=== PATIENT | female | born 1970 | race Caucasian/White ===

== ENCOUNTER 2018-03-20 21:04 | Emergency (ER) | payer BC ==
--- NOTE | 2018-03-20 21:56 | ED ---
Psych HPI - General Chief Complaint: Psychiatric Symptoms Stated Complaint: Mental health Time Seen by Provider: 03/20/18 21:55 Source: patient, family Mode of arrival: ambulatory - History of Present Illness Initial Comments: Lyn is a 47-year-old female with a history of depression and anxiety who presents the ED today in police custody for psychiatric evaluation. Patient is accompanied by her parents who are here for emotional support. The patient reports that she recently learned that her significant other of 5 years has been unfaithful to her, she reports that today her boyfriend's ex-girlfriend contacted her and gave her some very unpleasant information which upset the patient. Patient reports she then text that her boyfriend and told him that she was going to harm herself, patient admits that she was doing this for attention seeking. She states she felt she was testing her boyfriend to see if he even care. She states her boyfriend in even contact her after she said has not information and so he contacted the police who subsequently brought her to the ER. Patient denies any suicidal thoughts or ideation. She denies any self- harm activities. She has no intention of harming herself. Patient does admit to being somewhat upset over the recent breakup however has good social support and is not suicidal, homicidal, delusional. Patient has a follow-up appointment with her counselor tomorrow at 3:30. She's been compliant with all medications. She hasn't been hospitalized in a long period of time. Patient admits to sending the text message that indicated she plan to harm herself, she recognizes that this was a poor decision. She recognizes the utility of being brought to the emergency department and is apologetic for "wasting" our time and place and time of police. - Related Data Home Medications Medication Instructions Recorded Confirmed ALPRAZolam [Xanax] 0.5 mg PO BID PRN 03/20/18 03/20/18 Gabapentin 400 - 800 mg PO TID PRN 03/20/18 03/20/18 Levothyroxine Sodium [Synthroid] 25 mcg PO DAILY 03/20/18 03/20/18 Venlafaxine HCl ER [Effexor Xr] 150 mg PO BID 03/20/18 03/20/18 Allergies Allergy/AdvReac Type Severity Reaction Status Date / Time No Known Allergies Allergy Verified 03/20/18 22:43 Review of Systems ROS Statement: Those systems with pertinent positive or pertinent negative responses have been documented in the HPI. ROS Other: All systems not noted in ROS Statement are negative. Past Medical History Past Medical History: No Reported History History of Any Multi-Drug Resistant Organisms: None Reported Past Surgical History: Appendectomy, Cholecystectomy, Hysterectomy Past Psychological History: Bipolar Smoking Status: Never smoker Past Alcohol Use History: None Reported Past Drug Use History: None Reported General Exam - General Exam Comments Initial Comments: Physical Exam GENERAL: Patient is well-developed and well-nourished. Patient is nontoxic and well- hydrated and is in no distress. HENT: Normocephalic, Atraumatic. EYES: PERRL, EOMI PULMONARY: Unlabored respirations. No audible rales rhonchi or wheezing was noted. CARDIOVASCULAR: There is a regular rate and rhythm without any murmurs gallops or rubs. ABDOMEN: Soft and nontender with normal bowel sounds. SKIN: Skin is clear with no lesions or rashes and otherwise unremarkable. : Deferred NEUROLOGIC: Patient is alert and oriented x3. Moving all extremities spontaneously MUSCULOSKELETAL: Normal extremities with adequate strength and full range of motion. No lower extremity swelling or edema. No calf tenderness. PSYCHIATRIC: Normal psychiatric evaluation. Limitations: no limitations Limitations: no limitations Course Vital Signs 03/20/18 21:12 Temperature 98.3 F Pulse Rate 101 H Respiratory 18 Rate Blood Pressure 139/89 O2 Sat by Pulse 95 Oximetry Medical Decision Making - Medical Decision Making The patient was seen and evaluated, history is obtained from the patient. Patient's parents at bedside also provide further history. Patient does have a history of depression and anxiety, she does admit to making a suicidal statement however recognizes that this statement was attention seeking and she was reportedly testing her boyfriend to see if he cared. Patient denies any suicidal thoughts or plan. Family at bedside also states they do not feel that she suicidal or harm to herself or others. Patient does have established outpatient counseling and does have a appointment for tomorrow at 3:30. Patient agrees to follow up with her counselor, patient contracts to safety. Family reports that they will be with the patient throughout the night until she leaves for work in the morning. At this time either the patient, myself nor the family feel that she requires further psychiatric evaluation or intervention. At this time the patient and her family are comfortable with the plan for discharge home. Return parameters were discussed. Patient was encouraged to call 911 if she has any thoughts of self-harm or injury. Patient was discharged home in stable condition. - Lab Data Lab Results 03/20/18 Range/Units 22:25 Urine Opiates Screen Not Detected (NotDetected) Ur Oxycodone Screen Not Detected (NotDetected) Urine Methadone Screen Not Detected (NotDetected) Ur Propoxyphene Screen Not Detected (NotDetected) Ur Barbiturates Screen Not Detected (NotDetected) U Tricyclic Antidepress Not Detected (NotDetected) Ur Phencyclidine Scrn Not Detected (NotDetected) Ur Amphetamines Screen Not Detected (NotDetected) U Methamphetamines Scrn Not Detected (NotDetected) U Benzodiazepines Scrn Detected H (NotDetected) Urine Cocaine Screen Not Detected (NotDetected) U Marijuana (THC) Screen Detected H (NotDetected) Disposition Clinical Impression: Grief Disposition: HOME SELF-CARE Condition: Good Instructions: Depression (ED) Is patient prescribed a controlled substance at d/c from ED?: No Referrals: None,Stated [REFERRING] - 1-2 days
[2018-03-20 23:27] LABS: Amphetamine Screen,Urine Not Detected (NotDetected); Barbiturate Screen,Urine Not Detected (NotDetected); Benzodiazepines Screen,Urine Detected (NotDetected); Cocaine Screen,Urine Not Detected (NotDetected); Methadone Screen, Urine Not Detected (NotDetected); Opiate Screen,Urine Not Detected (NotDetected); Oxycodone Screen, Urine Not Detected (NotDetected); Phencyclidine Screen,Urine Not Detected (NotDetected); Tricyclic Antidepressant,Urine Not Detected (NotDetected); Urn Cannabinoid Scrn Detected (NotDetected)
[2018-03-20 23:47] VITALS: BP 132/93; PULSE 90; RESP 17; TEMP 98.6
== END 2018-03-20 23:56 | disposition home or self-care (01) ==
LOC: EC 21:04
DX: F43.21 Adjustment disorder with depressed mood (principal); F41.9 Anxiety disorder, unspecified; Z79.899 Other long term (current) drug therapy
CPT/HCPCS: 80306; 82075; 99283

== ENCOUNTER → 2020-05-29 | Outpatient (CLI) | payer BC ==
[2020-05-29 14:55] VITALS: BP 126/80; PULSE 101; TEMP 98.1; BMI 36.0
--- NOTE | 2020-05-29 15:30 | P.HPBAR ---
Bariatric H&P - History & Physicial H&P Date: 05/29/20 History & Physicial: Visit/CC: initial clinic visit Patient initial contact: Initial weight: Initial weight in pounds: Height: 5 ft 4 in Initial BMI: Last weight: Current weight: 95.254 kg Current weight in pounds: 210.00 Current BMI: 36.0 [place] body weight (based on NIH guidelines): 54.431 kg Excess body weight loss: The patient is a 49 year-old F who presents for Bariatric Assessment. 49-year-old female presents to discuss weight loss surgery. Patient has had 3 family members go through a sleeve gastrectomy in the past. Patient with comorbidities including hypercholesterolemia, sleep apnea, chronic back pain, reflux. No history of DVT or dysphagia. No tobacco use in the past. BMI 36. Surgical history includes appendectomy: Hysterectomy all done laparoscopically. Review of Systems The patient denies any acute changes in vision or hearing, no dysphagia or odynophagia, no chest pain or shortness of breath, no dysuria or hematuria, no headache, no runny nose, no rectal bleeding or melena, no unexplained weight loss Past Medical History Past Medical History: No Reported History History of Any Multi-Drug Resistant Organisms: None Reported Past Surgical History: Appendectomy, Cholecystectomy, Hysterectomy Past Anesthesia/Blood Transfusion Reactions: No Reported Reaction Past Psychological History: Bipolar Smoking Status: Never smoker Past Alcohol Use History: None Reported Past Drug Use History: None Reported Surgical - Exam Vital Signs Temp Pulse BP 98.1 F 101 H 126/80 05/29/20 14:45 05/29/20 14:45 05/29/20 14:45 Physical exam: General: Well-developed, well-nourished HEENT: Normocephalic, sclerae nonicteric Abdomen: Nontender, nondistended Extremities: No edema Neuro: Alert and oriented Bariatric Assessment & Plan (1) Obesity (BMI 30-39.9) Narrative/Plan: 49-year-old female with obesity and associated comorbidities. Patient int erested in sleeve gastrectomy. Patient does require supervised weight loss documentation. Will discuss with her primary care physician in more detail. Will require upper endoscopy once that documentation is obtained. The risks of bleeding, infection, stenosis, stricture, leak, abscess, fistula formation, peritonitis, poor weight loss, reflux, vomiting, conversion to an open procedure, aborting sleeve gastrectomy, GA, PE, DVT, and were discussed. The patient understands and wishes to proceed. Status: Acute Bariatric Checklist Checklist: Plan: Checklist: EGD: 1. Hiatal hernia: 2. H. Pylori: HgbA1c: Vitamin D: Smoking: Never smoker Primary care physician referral: Psychiatry clearance: Cardiology clearance: Sleep study: Diet journal: VTE risk score: VTE risk level: Rehab needs at discharge:
[2020-05-29 15:58] LABS: HCT 38.4 % (34.0-46.0); HGB 12.3 gm/dL (11.4-16.0); Hypochromasia Slight; MCH 27.8 pg (25.0-35.0); MCV 86.9 fL (80.0-100.0); Mean Platelet Volume 7.4; Platelet Count 381 k/uL (150-450); RBC 4.42 m/uL (3.80-5.40); RDW 13.3 % (11.5-15.5); WBC 9.8 k/uL (3.8-10.6)
[2020-05-30 00:32] LABS: Hemoglobin A1C 5.6 % (4.0-6.0)
[2020-05-30 02:38] LABS: ALT 32 U/L (8-44); AST 20 U/L (13-35); African American GFR (CKD) 100.3 (60.0-200.0); Albumin/Globulin Ratio 2.15 (1.60-3.17); Alkaline Phosphatase 128 U/L (41-126); Calcium 8.4 mg/dL (8.7-10.3); Carbon Dioxide 22.1 mmol/L (21.6-31.8); Chloride 107 mmol/L (96-109); Glucose 93 mg/dL (70-110); Iron 34 ug/dL (50-170); Non-African American GFR(CKD) 86.6 (60.0-200.0); Sodium 141 mmol/L (135-145); Total Bilirubin 0.3 mg/dL (0.3-1.2); Total Protein 6.3 g/dL (6.2-8.2)
[2020-05-30 04:21] LABS: Folate, Serum >24.0 ng/mL
== END | disposition home or self-care (01) ==
LOC: BARWHC3 14:13
PROVIDERS: ATTEND Surgery
DX: E66.01 Morbid (severe) obesity due to excess calories (principal); Z68.30 Body mass index [BMI] 30.0-30.9, adult; K90.89 Other intestinal malabsorption; E55.9 Vitamin D deficiency, unspecified
CPT/HCPCS: 36415; 80053; 82306; 82607; 82746; 83036; 83540; 84425; 85027; 99211

== ENCOUNTER 2020-07-01 09:57 | Day surgery (SDC) | payer BC ==
[2020-06-27 11:11] VITALS: BMI 35.0
[~2020-07-01 09:57] MED LIST: LACTATED RINGERS 1,000 ML IV SCH; LIDOCAINE 1% (10MG/ML) FOR IV START INTRADERMA PRN
[2020-07-01 10:22] VITALS: TEMP 98.6
[2020-07-01] MEDS ORDERED: PROPOFOL 10 MG/ML 20 ML VIAL IV ONE (10:57)
[2020-07-01] MEDS ORDERED: LIDOCAINE 1% INJ 10MG/ML (20 ML MDV) ONE (10:57)
--- NOTE | 2020-07-01 11:00 | P.GSHP ---
History of Present Illness H&P Date: 07/01/20 Chief Complaint: GERD, screening Patient here today for upper and lower endoscopy. Mild reflux symptoms. Patient is being evaluated for sleep gastrectomy. No bowel complaints. Screening colon. Past Medical History Past Medical History: GERD/Reflux, Pneumonia Additional Past Medical History / Comment(s): states "double pneumonia" last month -hospitalized at [facility] diarrhea. History of Any Multi-Drug Resistant Organisms: None Reported Past Surgical History: Appendectomy, Cholecystectomy, Hysterectomy Past Anesthesia/Blood Transfusion Reactions: No Reported Reaction, Motion Sickness Past Psychological History: Anxiety, Depression Additional Psychological History / Comment(s): FATHER FROM COVID Smoking Status: Never smoker Past Alcohol Use History: None Reported Past Drug Use History: None Reported - Past Family History Mother Family Medical History: No Reported History Medications and Allergies Home Medications Medication Instructions Recorded Confirmed Type Calcium (Unknown Dose) 1 tab PO DAILY 06/27/20 History Ibuprofen [Motrin Ib] 400 mg PO DIRECTED PRN 06/27/20 06/27/20 History Multivit with Calcium,Iron,Min 1 each PO DAILY 06/27/20 06/27/20 History [Women's Multivitamin] Omeprazole [PriLOSEC] 40 mg PO DAILY PRN 06/27/20 06/27/20 History Restoril (Unknown Dose) 1 tab PO HS PRN 06/27/20 History Venlafaxine HCl ER [Effexor Xr] 150 mg PO DAILY 06/27/20 06/27/20 History Vitamin D (Unknown Dose) 1 tab PO DAILY 06/27/20 History clonazePAM [KlonoPIN] 1 mg PO HS 06/27/20 06/27/20 History lamoTRIgine [LaMICtal Xr] 50 mg PO DAILY 06/27/20 06/27/20 History Allergies Allergy/AdvReac Type Severity Reaction Status Date / Time No Known Allergies Allergy Verified 06/27/20 10:45 Surgical - Exam Vital Signs Temp Pulse Resp BP Pulse Ox 98.6 F 78 18 134/95 97 07/01/20 10:20 07/01/20 10:20 07/01/20 10:20 07/01/20 10:20 07/01/20 10:20 Physical exam: General: Well-developed, well-nourished HEENT: Normocephalic, sclerae nonicteric Abdomen: Nontender, nondistended Extremities: No edema Neuro: Alert and oriented Assessment and Plan (1) GERD (gastroesophageal reflux disease) Narrative/Plan: Will proceed with upper and lower endoscopy Current Visit: Yes Status: Acute Code(s): K21.9 - GASTRO-ESOPHAGEAL REFLUX DISEASE WITHOUT ESOPHAGITIS SNOMED Code(s): 314844221
--- NOTE | 2020-07-01 11:16 | P.PCN ---
Date of Procedure: 07/01/20 Procedure(s) Performed: PREOPERATIVE DIAGNOSIS: GERD, screening POSTOPERATIVE DIAGNOSIS: Gastritis, hiatal hernia, distal esophagitis PROCEDURE: 1. EGD with biopsy 2. Colonoscopy ANESTHESIA: MAC SURGEON: Jelani Agee M.D. SPECIMENS: Antrum, Distal esophagus ENDOSCOPIC PROCEDURE: The patient was on the endoscopy table in the left decubitus position. The Olympus gastroscope was inserted into the oropharynx and passed under direct visualization to the region of the third portion of the duodenum. From that point the scope was slowly withdrawn inspecting all surfaces carefully. There were no neoplastic inflammatory or polypoid lesions throughout the duodenum. The pylorus was widely patent. The stomach was carefully inspected. There was gastritis present. A biopsy of the antrum took place to rule out H. pylori. Retroflexion revealed a small moderate sized hiatal hernia. The GE junction was present 3 cm above the diaphragmatic hiatus. The distal esophagus revealed multiple linear erosions present. These were non-circumferential. These measured 2 cm in length. Biopsies took place of the distal esophagitis. The mid and proximal esophagus appeared normal. There were no Hooper's changes grossly. The patient was kept on the endoscopy table in the left decubitus position. The Olympus colonoscope was inserted into the anus and passed under direct visualization to the base of the cecum. The appendiceal orifice was visualized. From that point the scope was slowly withdrawn inspecting all surfaces carefully. There were no neoplastic inflammatory or polypoid lesions throughout the cecum, ascending, transverse, descending, sigmoid and rectum. There was no visible diverticulosis noted. Digital rectal examination was normal. The patient was taken to the recovery room in stable condition per anesthesia guidelines. RECOMMENDATIONS: Resume diet. Follow colonoscopy 10 years. Await biopsy results. Begin antiacid therapy.
[2020-07-01 11:21] VITALS: RESP 16
[2020-07-01 11:33] VITALS: BP 137/96; PULSE 102
== END 2020-07-01 12:11 | disposition home or self-care (01) ==
LOC: ORWHC2ENDO 09:57
PROVIDERS: ATTEND Surgery
DX: K29.60 Other gastritis without bleeding (principal); K44.9 Diaphragmatic hernia without obstruction or gangrene; K21.00 Gastro-esophageal reflux disease with esophagitis, without bleeding; Z12.11 Encounter for screening for malignant neoplasm of colon; F41.9 Anxiety disorder, unspecified; F32.9 Major depressive disorder, single episode, unspecified; E66.9 Obesity, unspecified; Z68.35 Body mass index [BMI] 35.0-35.9, adult; Z79.899 Other long term (current) drug therapy; Z87.01 Personal history of pneumonia (recurrent); Z90.49 Acquired absence of other specified parts of digestive tract; Z90.710 Acquired absence of both cervix and uterus
CPT/HCPCS: 88305; 43239; J2001; J2704; G0121

== ENCOUNTER → 2020-12-29 | Outpatient (CLI) | payer BC ==
[2020-12-29 13:40] VITALS: BMI 33.0
== END | disposition home or self-care (01) ==
LOC: BARWHC3 08:49
PROVIDERS: ATTEND Surgery
DX: E66.01 Morbid (severe) obesity due to excess calories (principal); Z71.3 Dietary counseling and surveillance
CPT/HCPCS: 97804

== ENCOUNTER → 2021-01-13 | Outpatient (CLI) | payer BC ==
[2021-01-13 10:13] VITALS: BP 164/98; PULSE 118; TEMP 98; BMI 36.8
--- NOTE | 2021-01-13 10:52 | P.BASOAP ---
Subjective Progress Note Date: 01/13/21 Principal diagnosis: Morbid obesity Patient returns for reevaluation. Patient remains interested in sleeve gastrectomy. Patient underwent upper endoscopy in June showing 3 cm hiatal hernia and mild gastritis. No H. pylori. Patient nonsmoker. No other changes to her history and physical from previous. Objective - Vital Signs Vital signs: Vital Signs Temp 98 F 01/13/21 10:11 Pulse 118 H 01/13/21 10:11 Resp BP 164/98 01/13/21 10:11 Pulse Ox Intake & Output 01/12/21 01/13/21 01/13/21 18:59 06:59 18:59 Weight 97.522 kg - Exam Abdomen: Soft, nontender, nondistended Assessment/Plan (1) Obesity (BMI 30-39.9) Narrative/Plan: 50-year-old female with recent findings of hiatal hernia and obesity. Patient remains issues to the sleeve gastrectomy. Discussed importance of repairing hiatal hernia at the time of surgery. Also discussed the increased risk of hernia recurrence and chronic reflux that could result in need for conversion to gastric bypass in the future. Despite that patient remains in she did. We'll tentatively proceed with laparoscopic sleeve gastrectomy with repair hiatal hernia, possible open. The risks of bleeding, infection, stenosis, stricture, leak, abscess, fistula formation, peritonitis, poor weight loss, reflux, vomiting, conversion to an open procedure, aborting sleeve gastrectomy, PA, PE, DVT, and were discussed. The patient understands and wishes to proceed. Plan: Date: 01/13/21 Initial Weight: Initial BMI: Current Weight: 97.522 kg Current BMI: 36.8 Type of Surgery: Total Volume in Band: Previous Volume: Volume Removed: Volume Added: Band Size:
[2021-01-13 11:58] LABS: HCT 39.4 % (34.0-46.0); HGB 12.3 gm/dL (11.4-16.0); Hypochromasia Slight; MCH 25.1 pg (25.0-35.0); MCHC 31.2 g/dL (31.0-37.0); MCV 80.6 fL (80.0-100.0); Mean Platelet Volume 7.4; Platelet Count 292 k/uL (150-450); RBC 4.89 m/uL (3.80-5.40); RDW 15.9 % (11.5-15.5); WBC 7.3 k/uL (3.8-10.6)
[2021-01-13 20:01] LABS: Hemoglobin A1C 5.7 % (4.0-6.0)
[2021-01-15 02:51] LABS: African American GFR (CKD) 85.8 (60.0-200.0); Albumin 4.4 g/dL (3.8-4.9); Albumin/Globulin Ratio 1.71 (1.60-3.17); Anion Gap 17.5 mmol/L (4.00-12.00); BUN/Creat Ratio 13.37 Ratio (12.00-20.00); Blood Urea Nitrogen 12.1 mg/dL (9.0-27.0); Calcium 9.5 mg/dL (8.7-10.3); Carbon Dioxide 19.5 mmol/L (21.6-31.8); Folate, Serum 18.3 ng/mL (4.40-31.00); Globulin 2.6 g/dL (1.6-3.3); Non-African American GFR(CKD) 74.1 (60.0-200.0); Potassium 4.7 mmol/L (3.5-5.5); Total Bilirubin 0.3 mg/dL (0.30-1.20)
== END | disposition home or self-care (01) ==
LOC: BARWHC3 09:57
PROVIDERS: ATTEND Surgery
DX: E66.01 Morbid (severe) obesity due to excess calories (principal); K44.9 Diaphragmatic hernia without obstruction or gangrene; Z68.36 Body mass index [BMI] 36.0-36.9, adult; K90.89 Other intestinal malabsorption; E55.9 Vitamin D deficiency, unspecified
CPT/HCPCS: 80053; 82306; 82607; 82746; 83036; 83540; 84425; 85027; 93005; 99211

== ENCOUNTER 2021-02-05 10:10 | Inpatient (IN) | payer BC ==
[~2021-02-05 10:10] MED LIST changes: +DEXAMETHASONE SOD PHOSPHATE 4 MG/ML 1 ML VIAL IV ONE; +ENOXAPARIN 40 MG/0.4 ML SYRINGE SQ PRN; +HYDROmorphone 0.5 MG/0.5 ML SYRINGE IVP PRN; +MIDAZOLAM 2 MG/2 ML VIAL IV PRN; +ONDANSETRON 4 MG/2 ML VIAL IVP ONE
[2021-02-05] MEDS ORDERED: MIDAZOLAM 2 MG/2 ML VIAL IVP ONE (11:44)
[2021-02-05] MEDS ORDERED: SCOPOLAMINE 1.5MG/72HR PATCH TRANSDERM ONE (12:07)
--- NOTE | 2021-02-05 12:11 | P.GSHP ---
History of Present Illness H&P Date: 02/05/21 Chief Complaint: Morbid obesity 50-year-old female known to our service. He was initially seen in May requesting bariatric surgery. Patient suffers from hypercholesterolemia, sleep apnea, chronic back pain, reflux. BMI 36 at that time which has not changed. No tobacco use. No history of DVT or dysphagia. Laparoscopic hysterectomy cholecystectomy and appendectomy in the past. Underwent recent EGD showing a 3 cm hiatal hernia and mild gastritis. Here today for elective sleeve gastrectomy with repair hiatal hernia. Past Medical History Past Medical History: GERD/Reflux, Pneumonia Additional Past Medical History / Comment(s): states "double pneumonia" last month -hospitalized at [facility] diarrhea. History of Any Multi-Drug Resistant Organisms: None Reported Past Surgical History: Appendectomy, Cholecystectomy, Hysterectomy Past Anesthesia/Blood Transfusion Reactions: No Reported Reaction, Motion Sickness Past Psychological History: Anxiety, Depression Additional Psychological History / Comment(s): FATHER FROM COVID Smoking Status: Never smoker Past Alcohol Use History: None Reported Past Drug Use History: None Reported - Past Family History Mother Family Medical History: No Reported History Medications and Allergies Home Medications Medication Instructions Recorded Confirmed Type Ibuprofen [Motrin Ib] 400 mg PO DIRECTED PRN 06/27/20 02/02/21 History Multivit with Calcium,Iron,Min 1 each PO DAILY 06/27/20 02/02/21 History [Women's Multivitamin] Omeprazole [PriLOSEC] 40 mg PO HS PRN 06/27/20 02/02/21 History Venlafaxine HCl ER [Effexor Xr] 150 mg PO QAM 06/27/20 02/02/21 History clonazePAM [KlonoPIN] 1 mg PO HS PRN 06/27/20 02/02/21 History lamoTRIgine [LaMICtal Xr] 50 mg PO HS 06/27/20 02/02/21 History Allergies Allergy/AdvReac Type Severity Reaction Status Date / Time No Known Allergies Allergy Verified 02/05/21 11:31 Surgical - Exam Vital Signs Temp Pulse Resp BP Pulse Ox 97.7 F 107 H 16 145/84 97 02/05/21 11:30 02/05/21 11:30 02/05/21 11:30 02/05/21 11:30 02/05/21 11:30 Physical exam: General: Well-developed, well-nourished HEENT: Normocephalic, sclerae nonicteric Abdomen: Nontender, nondistended Extremities: No edema Neuro: Alert and oriented Assessment and Plan (1) Obesity (BMI 30-39.9) Narrative/Plan: 50-year-old female with morbid obesity, hiatal hernia, and associated comorbidities. We'll proceed with laparoscopic sleeve gastrectomy with repair hiatal hernia, possible open. The risks of bleeding, infection, stenosis, stricture, leak, abscess, fistula formation, peritonitis, poor weight loss, reflux, vomiting, conversion to an open procedure, aborting sleeve gastrectomy, NM, PE, DVT, and were discussed. The patient understands and wishes to proceed. Current Visit: No Status: Acute Code(s): E66.9 - OBESITY, UNSPECIFIED SNOMED Code(s): 950574401
[2021-02-05] MEDS ORDERED: fentaNYL (PF) 50 MCG/ML 2 ML AMP ONE (12:41)
[2021-02-05] MEDS ORDERED: MIDAZOLAM 2 MG/2 ML VIAL ONE (12:41)
[2021-02-05] MEDS ORDERED: ROCURONIUM 10 MG/ML (5 ML VIAL) IV ONE (12:41)
[2021-02-05] MEDS ORDERED: PROPOFOL 10 MG/ML 20 ML VIAL IV ONE (12:41)
[2021-02-05] MEDS ORDERED: LIDOCAINE 1% INJ 10MG/ML (20 ML MDV) ONE (12:41)
[2021-02-05] MEDS ORDERED: SUCCINYLCHOLINE CHLORIDE 100 MG/5 ML SYR IV ONE (12:41)
[2021-02-05] MEDS ORDERED: HYDROmorphone (PF) 1 MG/ML ONE (12:41)
[2021-02-05] MEDS ORDERED: NEOSTIGMINE 1 MG/ML 10 ML VIAL ONE (12:41)
[2021-02-05] MEDS ORDERED: GLYCOPYRROLATE 0.2 MG/ML 2 ML VIAL ONE (12:41)
[2021-02-05] MEDS ORDERED: BUPIVACAINE (PF) 0.25% 30 ML VIAL SQ ONE (13:24)
[2021-02-05] MEDS ORDERED: LACTATED RINGERS 1,000 ML IV ONE (14:02)
[2021-02-05] MEDS ORDERED: HYOSCYAMINE ORAL DROPS 1.875 MG/15 ML BOTTLE PO PRN (15:12)
[2021-02-05] MEDS ORDERED: diphenhydrAMINE 50 MG/ML 1 ML VIAL IVP PRN (15:12)
[2021-02-05] MEDS ORDERED: NALOXONE 0.4 MG/ML 1 ML VIAL IV PRN (15:12)
[2021-02-05] MEDS ORDERED: SIMETHICONE 40 MG/0.6 ML DROPS 2,000 MG/30 ML BOTTLE PO PRN (15:12)
--- NOTE | 2021-02-05 15:20 | P.OP ---
Date of Procedure: 02/05/21 Procedure(s) Performed: PREOPERATIVE DIAGNOSIS: Morbid obesity, hiatal hernia, hypercholesterolemia, sleep apnea, chronic back pain, chronic reflux POSTOPERATIVE DIAGNOSIS: Same PROCEDURE: Laparoscopic sleeve gastrectomy with repair hiatal hernia SURGEON: Anuel EBL: Minimal ANESTHESIA: General COMPLICATIONS: None OPERATIVE PROCEDURE: Patient was placed in the operating table in the supine position. She was placed under general anesthesia at that time. The abdomen was prepped and draped in sterile fashion after the patient was placed in lithotomy. A 5 mm optical trocar was used to enter the abdominal cavity in the left upper quadrant. Insufflation took place to 15 millimeters mercury. An additional right subxiphoid 5 mm trocar was then placed under direct visualization and then removed. 2 additional 5 mm trochars were placed in the right upper quadrant and left upper quadrant under direct visualization and a 15 mm trocar in the supraumbilical location. The liver was retracted using a medium Nika liver retractor through the right subxiphoid trocar site. The hiatus was inspected. The patient had a moderate-sized hiatal hernia. The phrenoesophageal ligament was fully dissected. The hernia was reduced fully. We mobilized the distal 5-7 cm of the esophagus. Once the esophagus was fully mobilized the posterior crura reapproximated using 2 separate 2-0 Ethibond sutures tied down using 2 separate time not devices. This adequately closed the hiatus. At that point I moved to the mid aspect of the greater curvature the stomach. The short gastric vasculature was divided using a LigaSure device proximally. I then switched and divided the short gastrics distally to a 3-4 cm from the pylorus. The dissection took place up to the left diaphragmatic crura at that point. The posterior short gastrics were likewise divided using the LigaSure device. Once the stomach was fully mobilized the blunt tipped 40- Ukrainian bougie dilator was advanced into the stomach and advanced all the way to the prepyloric location. A black echelon 60 stapler with echelon Endopath staple line reinforcement was utilized and fired tangentially across the antrum taking care to avoid narrowing at the incisura angularis. Subsequent firings of the green echelon 60 stapler with echelon Endopath staple line reinforcement took place proximally staying on the outer edge of our dilator. Once we reached the most proximal portion of the stomach a single firing of the gold echelon [address] The oral gastric tube was reinserted. The stomach was insufflated with approximately 100 mL of methylene blue. No evidence of leak or obstruction was seen. Tisseel fibrin glue was used along the length of the staple line. The stomach remnant was removed from the 15 mm trocar site without difficulty. The fascia at the 15 more site was closed using interrupted 0 Vicryl sutures with the laparoscopic suture passer and Kobi Senia technique. The insufflation was evacuated. The skin at all 5 incisions were closed using 4-0 Monocryl sutures. Skin glue was then applied. DISPOSITION: Stable to recovery room
[2021-02-05] MEDS: ALBUTEROL NEBULIZED 2.5 MG/3 ML INHALATION SCH ×2 (15:58→20:45)
[2021-02-05] MEDS: LABETALOL 5 MG/ML VIAL MDV IV ONE ×3 (16:07→16:26)
[2021-02-05] MEDS: HYDROmorphone 1 MG/ML 1 ML SYRINGE IVP PRN ×2 (17:41→21:10)
[2021-02-05] MEDS: 0.9% NACL WITH KCL 20 MEQ/L 1,000 ML IV SCH ×2 (18:26→23:46)
[2021-02-05] MEDS ORDERED: hydrALAZINE HCL 20 MG/ML 1 ML VIAL IVP PRN (21:19)
[2021-02-05] MEDS ORDERED: hydrALAZINE HCL 20 MG/ML 1 ML VIAL IVP STA (21:21)
[2021-02-05] MEDS: ONDANSETRON 4 MG/2 ML VIAL IVP PRN (21:37)
[2021-02-06] MEDS: HYDROmorphone 1 MG/ML 1 ML SYRINGE IVP PRN ×5 (00:47→22:35)
[2021-02-06] MEDS: ONDANSETRON 4 MG/2 ML VIAL IVP PRN ×3 (03:48→22:39)
[2021-02-06] MEDS: 0.9% NACL WITH KCL 20 MEQ/L 1,000 ML IV SCH ×2 (06:41→06:56)
[2021-02-06] MEDS: ENOXAPARIN 40 MG/0.4 ML SYRINGE SQ SCH (08:20)
[2021-02-06] MEDS: PANTOPRAZOLE 40 MG/10 ML VIAL IV SCH (08:20)
[2021-02-06] MEDS: ALBUTEROL NEBULIZED 2.5 MG/3 ML INHALATION SCH ×4 (08:22→20:16)
[2021-02-06] MEDS: 1: THIAMINE 100 MG, FOLIC ACID 1 MG in 0.9% NACL WITH KCL 20 MEQ/L 1,000 ML 2: 0.9% NAC IVPB SCH ×2 (08:42→22:36)
[2021-02-06 10:11] LABS: Basophils # (A) 0.03 X 10*3/uL (0.00-0.10); Basophils % (A) 0.2 %; Eosinophils # (A) 0 X 10*3/uL (0.04-0.35); Eosinophils % (A) 0 %; HCT 37.7 % (37.2-46.3); HGB 11.3 g/dL (12.0-15.0); Lymphocytes # (A) 1.49 X 10*3/uL (0.90-5.00); Lymphocytes % (A) 9.2 %; MCH 24.9 pg (27.0-32.0); MCV 83.2 fL (80.0-97.0); Mean Platelet Volume 11.6 fL (9.5-12.2); Monocytes % (A) 3.7 %; Neutrophils # (A) 14.02 X 10*3/uL (1.80-7.70); Neutrophils % (A) 86.5 %; Platelet Count 395 X 10*3/uL (140-440); RBC 4.53 X 10*6/uL (4.10-5.20); RDW 17.9 % (11.5-14.5)
[2021-02-06 10:59] LABS: African American GFR (CKD) 117.1 (60.0-200.0); Anion Gap 12.6 mmol/L (4.00-12.00); Blood Urea Nitrogen 10.3 mg/dL (9.0-27.0); Calcium 8.3 mg/dL (8.7-10.3); Carbon Dioxide 21.4 mmol/L (21.6-31.8); Phosphorus 4.2 mg/dL (2.4-5.1); Potassium 4.8 mmol/L (3.5-5.5)
[2021-02-06] MEDS: KETOROLAC 15 MG/ML 1 ML VIAL IVP SCH ×2 (11:48→16:36)
[2021-02-06 12:11] VITALS: BMI 36.3
--- NOTE | 2021-02-06 13:07 | FL ---
EXAMINATION TYPE: FL UGI DATE OF EXAM: 02/06/2021 CLINICAL HISTORY: Status post gastric sleeve Contrast: Omnipaque 350 50 mL The patient ingested contrast without difficulty or delay. Noted are postsurgical changes of gastric sleeve. There is no evidence for leak or obstruction. Contrast is noted within the duodenum. IMPRESSION: Post-surgical change of gastric sleeve without evidence for obstruction or leak at this point in time.
--- NOTE | 2021-02-06 13:18 | P.CONS ---
History of Present Illness - History of Present Illness This is a pleasant 50 years old female with past medical history of GERD, anx iety and depression. She was admitted by surgery team for elective laparoscopic sleeve gastrectomy w ith repair of hiatal hernia. Today is postoperative day #1. Patient having nausea and pain is surgical site which is expected.. No chest pain or dyspnea. Her weakness. In urine or bowel habits. No fever. She denies smoking, alcohol or illicit drugs. vitals are stable CBC today shows mild leukocytosis of 16.2 which is most likely active BMP is unremarkable. Electrolytes and creatinine are normal, and the ring 12.6. Magnesium 2.0. cardozo virus not detected. Upper GI series, but surgical changes of gastric sleeve without evidence of obstruction or leak at this point Review of Systems Review of systems CONSTITUTIONAL: No fever, no malaise, no fatigue. HEENT: No recent visual problems or hearing problems. Denied any sore throat. CARDIOVASCULAR: No orthopnea, PND, no palpitations, no syncope. PULMONARY: No shortness of breath, no cough, no hemoptysis. GASTROINTESTINAL: No diarrhea, no vomiting, no abdominal pain. Normoactive bowel sounds. NEUROLOGICAL: No headaches, no weakness, no numbness. HEMATOLOGICAL: Denies any bleeding or petechiae. GENITOURINARY: Denies any burning micturition, frequency, or urgency. MUSCULOSKELETAL/RHEUMATOLOGICAL: Denies any joint pain, swelling, or any muscle pain. ENDOCRINE: Denies any polyuria or polydipsia. Past Medical History Past Medical History: GERD/Reflux, Pneumonia Additional Past Medical History / Comment(s): states "double pneumonia" last month -hospitalized at [facility] diarrhea. History of Any Multi-Drug Resistant Organisms: None Reported Past Surgical History: Appendectomy, Cholecystectomy, Hysterectomy Past Anesthesia/Blood Transfusion Reactions: No Reported Reaction, Motion Sickness Past Psychological History: Anxiety, Depression Additional Psychological History / Comment(s): FATHER FROM COVID Smoking Status: Never smoker Past Alcohol Use History: None Reported Past Drug Use History: None Reported - Past Family History Mother Family Medical History: No Reported History Medications and Allergies Home Medications Medication Instructions Recorded Confirmed Type Ibuprofen [Motrin Ib] 400 mg PO DIRECTED PRN 06/27/20 02/02/21 History Multivit with Calcium,Iron,Min 1 each PO DAILY 06/27/20 02/02/21 History [Women's Multivitamin] Omeprazole [PriLOSEC] 40 mg PO HS PRN 06/27/20 02/02/21 History Venlafaxine HCl ER [Effexor Xr] 150 mg PO QAM 06/27/20 02/02/21 History clonazePAM [KlonoPIN] 1 mg PO HS PRN 06/27/20 02/02/21 History lamoTRIgine [LaMICtal Xr] 50 mg PO HS 06/27/20 02/02/21 History Allergies Allergy/AdvReac Type Severity Reaction Status Date / Time No Known Allergies Allergy Verified 02/05/21 11:31 Physical Exam Vitals: Vital Signs Temp Pulse Resp BP Pulse Ox 02/06/21 08:03 95 02/06/21 07:18 98.2 F 91 17 127/76 94 L 02/06/21 02:00 98.2 F 103 H 16 126/67 93 L 02/05/21 19:11 16 02/05/21 18:32 16 02/05/21 18:30 83 164/100 02/05/21 18:15 75 165/101 93 L 02/05/21 18:00 72 167/95 94 L 02/05/21 17:45 80 155/70 93 L 02/05/21 17:32 93 L 02/05/21 17:25 72 170/103 92 L 02/05/21 17:15 85 157/99 92 L 02/05/21 17:00 98.5 F 74 18 161/98 92 L 02/05/21 16:43 72 18 151/83 94 L 02/05/21 16:32 74 18 152/89 94 L 02/05/21 16:24 163/89 02/05/21 16:19 93 18 167/102 96 02/05/21 16:10 90 18 179/109 95 02/05/21 15:54 100 18 176/103 95 02/05/21 15:44 87 18 174/89 96 02/05/21 15:34 87 18 174/89 94 L 02/05/21 15:24 97.1 F L 90 18 177/94 98 02/05/21 12:04 92 16 99 02/05/21 11:30 97.7 F 107 H 16 145/84 97 Intake and Output 02/05/21 02/06/21 02/06/21 22:59 06:59 14:59 Intake Total 200 Output Total 600 1150 Balance -400 -1150 Intake: IV 200 Output: Urine 600 1150 GENERAL: The patient is alert and oriented x3, not in any acute distress. Well developed, well nourished. HEENT: Pupils are round and equally reacting to light. EOMI. No scleral icterus. No conjunctival pallor. Normocephalic, atraumatic. No pharyngeal erythema. No thyromegaly. CARDIOVASCULAR: S1 and S2 present. No murmurs, rubs, or gallops. PULMONARY: Chest is clear to auscultation, no wheezing or crackles. -ABDOMEN: Soft, mild epigastric tenderness at surgical sites which is expected, nondistended, normoactive bowel sounds. No palpable organomegaly. A scope he wounds are small and healing MUSCULOSKELETAL: No joint swelling or deformity. EXTREMITIES: No cyanosis, clubbing, or pedal edema. NEUROLOGICAL: Gross neurological examination did not reveal any focal deficits. SKIN: No rashes. no petechiae. Results CBC & Chem 7: 02/06/21 05:15 02/06/21 05:15 Assessment and Plan Assessment: GERD status post elective laparoscopic sleeve gastrectomy with repair of hiatal hernia. Hiatal hernia status post repair Leukocytosis, most likely reactive, no need for antibiotic Plan: this is a pleasant 50 years old female who presents with GERD status post gastric sleeve surgery. Continue with pain management, Zofran for nausea vomiting. Monitored WBC Labs and medication were reviewed.. Continue same treatment. Continue with symptomatic treatment. Resume home medication. Monitor lytes and vitals. DVT and GI prophylaxis. Further recommendationsas per clinical course of the patient DVT prophylaxis per surgery team GI prophylaxis: Continue with Protonix
--- NOTE | 2021-02-06 14:45 | P.PN ---
<ReynaRegine - Last Filed: 02/06/21 14:35> Subjective Progress Note Date: 02/06/21 CHIEF COMPLAINT: Morbid obesity status post laparoscopic sleeve gastrectomy with repair of hiatal hernia HISTORY OF PRESENT ILLNESS: This a 50-year-old female who underwent laparoscopic sleeve gastrectomy with repair of hiatal hernia yesterday. The patient has a history of hypercholesterolemia, sleep apnea, chronic back pain, GERD and a BMI of 36. Today she is seen and examined lying in bed. She is on with complaints of gas and bloating. Increased abdominal discomfort and distention. She has been afebrile. She denies any flatus or belching. She's been afebrile. IV fluids infusing. Upper GI series shows postsurgical change of gastric sleeve without evidence of obstruction or leak at this point in time. WBC 16.2 hemoglobin 11.3 platelet count 395,000 sodium 138 potassium 4.8 BUNs 10.3 creatinine 0.7 calcium 8.3 phosphorus 4.2 magnesium 2.0 PHYSICAL EXAM: VITAL SIGNS: Reviewed. GENERAL: Well-developed in no acute distress. HEENT: No sclera icterus. Extraocular movements grossly intact. Moist buccal mucosa. Head is atraumatic, normocephalic. ABDOMEN: Soft. Nondistended. Surgical tenderness. Incisions well approximated. NEUROLOGIC: Alert and oriented. Cranial nerves II through XII grossly intact. ASSESSMENT: 1. Postop day #1 laparoscopic sleeve gastrectomy with repair of hiatal hernia 2. Morbid obesity 3. Hiatal hernia 4. Sleep apnea 5. Chronic back pain 6. Chronic reflux PLAN: -May begin patient on bariatric clear liquid diet -Toradol 15 mg IV push every 6 hours scheduled -Reglan 10 mg IV push every 6 hours as needed -Encouraged ambulation -Encourage incentive spirometer use -Repeat CBC, BMP tomorrow The impression and plan of care has been dictated as directed. I performed a history and examination of this patient, discussed the same with the dictator. I agree with the dictator's note ,documented as a scribe. Any additional findings or plans will be noted. Objective - Vital Signs Vital signs: Vital Signs Temp 98.2 F 02/06/21 07:18 Pulse 91 02/06/21 07:18 Resp 15 02/06/21 08:00 BP 127/76 02/06/21 07:18 Pulse Ox 95 02/06/21 08:03 Intake & Output 02/05/21 02/06/21 02/06/21 18:59 06:59 18:59 Intake Total 1550 Output Total 20 1750 500 Balance 1530 -1750 -500 Weight 96.16 kg Intake: IV 1550 Output: Urine 1750 500 Estimated Blood Loss 20 - Labs CBC & Chem 7: 02/06/21 05:15 02/06/21 05:15 Labs: Abnormal Lab Results - Last 24 Hours (Table) 02/06/21 02/06/21 Range/Units 05:15 05:15 WBC 16.20 H (4.50-10.00) X 10*3/uL Hgb 11.3 L (12.0-15.0) g/dL MCH 24.9 L (27.0-32.0) pg MCHC 30.0 L (32.0-37.0) g/dL RDW 17.9 H (11.5-14.5) % Immature Gran # 0.06 H (0.00-0.04) X 10*3/uL Neutrophils # 14.02 H (1.80-7.70) X 10*3/uL Eosinophils # 0 L (0.04-0.35) X 10*3/uL Carbon Dioxide 21.4 L (21.6-31.8) mmol/L Anion Gap 12.60 H (4.00-12.00) mmol/L Calcium 8.3 L (8.7-10.3) mg/dL <Jelani Agee - Last Filed: 02/06/21 17:44> Subjective As above. Patient doing better. She was nauseous and having some pain earlier today. That is mostly resolved. She actually has had a fair amount of liquid intake probably over 20-30 some ounces so far today. Continue bariatric liquids. Ambulate. Recheck labs tomorrow. Objective - Vital Signs Vital signs: Vital Signs Temp 97.8 F 02/06/21 14:23 Pulse 89 02/06/21 14:23 Resp 17 02/06/21 14:23 BP 142/78 02/06/21 14:23 Pulse Ox 92 L 02/06/21 16:48 Intake & Output 02/05/21 02/06/21 02/06/21 18:59 06:59 18:59 Intake Total 1550 1560 Output Total 20 1750 1700 Balance 1530 -1750 -140 Weight 96.16 kg 96.16 kg Intake: IV 1550 1100 0.9% NaCl with KCl 20 Meq 1100 /l 1,000 ml @ 100 mls/hr IVPB .BY DURATION GARIMA Rx# :[id number] Intake, IV Titration 100 Amount Thiamine 100 mg Folic 100 Acid 1 mg In 0.9% NaCl with KCl 20 Meq/l 1,000 ml @ 100 mls/hr IVPB .BY DURATION GARIMA Rx#: [id number] Oral 360 Output: Urine 1750 1700 Estimated Blood Loss 20 - Labs CBC & Chem 7: 02/06/21 05:15 02/06/21 05:15 Labs: Abnormal Lab Results - Last 24 Hours (Table) 02/06/21 02/06/21 Range/Units 05:15 05:15 WBC 16.20 H (4.50-10.00) X 10*3/uL Hgb 11.3 L (12.0-15.0) g/dL MCH 24.9 L (27.0-32.0) pg MCHC 30.0 L (32.0-37.0) g/dL RDW 17.9 H (11.5-14.5) % Immature Gran # 0.06 H (0.00-0.04) X 10*3/uL Neutrophils # 14.02 H (1.80-7.70) X 10*3/uL Eosinophils # 0 L (0.04-0.35) X 10*3/uL Carbon Dioxide 21.4 L (21.6-31.8) mmol/L Anion Gap 12.60 H (4.00-12.00) mmol/L Calcium 8.3 L (8.7-10.3) mg/dL Assessment and Plan (1) Obesity (BMI 30-39.9) Current Visit: Yes Status: Acute Code(s): E66.9 - OBESITY, UNSPECIFIED SNOMED Code(s): 461599225
[2021-02-06] MEDS: METOCLOPRAMIDE 5 MG/ML 2 ML VIAL IVP PRN (16:36)
[2021-02-07] MEDS: 1: THIAMINE 100 MG, FOLIC ACID 1 MG in 0.9% NACL WITH KCL 20 MEQ/L 1,000 ML 2: 0.9% NAC IVPB SCH ×2 (00:22→16:41)
[2021-02-07] MEDS: KETOROLAC 15 MG/ML 1 ML VIAL IVP SCH ×4 (00:26→18:24)
[2021-02-07 06:22] LABS: African American GFR (CKD) >90 (>60 ml/min/1.73 sqM); Anion Gap 5 mmol/L; Blood Urea Nitrogen 10 mg/dL (7-17); Calcium 8.3 mg/dL (8.4-10.2); Carbon Dioxide 26 mmol/L (22-30); Chloride 105 mmol/L (98-107); Glucose 89 mg/dL (74-99); Magnesium 1.9 mg/dL (1.6-2.3); Non-African American GFR(CKD) >90 (>60 ml/min/1.73 sqM); Potassium 4.2 mmol/L (3.5-5.1); Sodium 136 mmol/L (137-145)
[2021-02-07] MEDS: ALBUTEROL NEBULIZED 2.5 MG/3 ML INHALATION SCH ×4 (07:43→20:51)
[2021-02-07] MEDS ORDERED: bisacodyL 5 MG TABLET.DR PO PRN (08:00)
[2021-02-07] MEDS: ONDANSETRON 4 MG/2 ML VIAL IVP PRN ×3 (08:06→21:45)
[2021-02-07] MEDS: PANTOPRAZOLE 40 MG/10 ML VIAL IV SCH (08:06)
[2021-02-07] MEDS: HYDROmorphone 1 MG/ML 1 ML SYRINGE IVP PRN ×2 (08:09→16:41)
[2021-02-07] MEDS: ENOXAPARIN 40 MG/0.4 ML SYRINGE SQ SCH (08:10)
[2021-02-07 09:10] LABS: Basophils # (A) 0.04 X 10*3/uL (0.00-0.10); Basophils % (A) 0.5 %; Eosinophils # (A) 0.16 X 10*3/uL (0.04-0.35); HGB 9.6 g/dL (12.0-15.0); Lymphocytes # (A) 2.85 X 10*3/uL (0.90-5.00); Lymphocytes % (A) 35.9 %; MCH 24.2 pg (27.0-32.0); MCHC 29.1 g/dL (32.0-37.0); MCV 83.1 fL (80.0-97.0); Mean Platelet Volume 11.2 fL (9.5-12.2); Monocytes # (A) 0.49 X 10*3/uL (0.20-1.00); Monocytes % (A) 6.2 %; Neutrophils # (A) 4.37 X 10*3/uL (1.80-7.70); Neutrophils % (A) 55.1 %; Platelet Count 282 X 10*3/uL (140-440); RBC 3.97 X 10*6/uL (4.10-5.20); RDW 17.6 % (11.5-14.5); WBC 7.93 X 10*3/uL (4.50-10.00)
--- NOTE | 2021-02-07 11:02 | P.PN ---
Progress Note - Text Progress Note Date: 02/07/21 The patient is resting in her bed. She states she just doesn't feel well. She has some pain. On exam her vital signs appear stable. Abdomen soft her incisions clean and intact Status post sleeve gastrectomy. Patient will most likely be discharged home tomorrow. She'll continue receive supportive care.
--- NOTE | 2021-02-07 14:22 | P.PN ---
Subjective This is a pleasant 50 years old female with past medical history of GERD, anxiety and depression. She was admitted by surgery team for elective laparoscopic sleeve gastrectomy with repair of hiatal hernia. Today is postoperative day #1. Patient having nausea and pain is surgical site which is expected.. No chest pain or dyspnea. Her weakness. In urine or bowel habits. No fever. She denies smoking, alcohol or illicit drugs. vitals are stable CBC today shows mild leukocytosis of 16.2 which is most likely active BMP is unremarkable. Electrolytes and creatinine are normal, and the ring 12.6. Magnesium 2.0. cardozo virus not detected. Upper GI series, but surgical changes of gastric sleeve without evidence of obstruction or leak at this point 02/07/2021 Patient is doing well today, no nausea vomiting. Abdominal pain is better improved with pain medication. Patient is on bariatric liquid diet. Nuchal psychiatric is improved and hemoglobin is 11 down to 9.6 with evidence of hemoglobin delusion aspect is also down and WBC as well. BMP is unremarkable. She is continued on symptomatic treatment of Reglan, Toradol and Dulcolax per surgery team patient denies any other complaints or physical symptoms and she looks comfortable Possible discharge in 24-48 hours if she can continue to improve as per surgery team Objective - Vital Signs Vital signs: Vital Signs Temp 97.8 F 02/07/21 08:00 Pulse 89 02/07/21 08:00 Resp 16 02/07/21 08:00 BP 122/76 02/07/21 08:00 Pulse Ox 95 02/07/21 08:00 Intake & Output 02/06/21 02/07/21 02/07/21 18:59 06:59 18:59 Intake Total 2561.2 1720 Output Total 1700 520 Balance 861.2 1200 Weight 96.16 kg Intake: IV 1100 0.9% NaCl with KCl 20 Meq 1100 /l 1,000 ml @ 100 mls/hr IVPB .BY DURATION GARIMA Rx# :[id number] Intake, IV Titration 1101.2 1000 Amount 0.9% NaCl with KCl 20 Meq 1000 /l 1,000 ml @ 100 mls/hr IVPB .BY DURATION GARIMA Rx# :[id number] Thiamine 100 mg Folic 1101.2 Acid 1 mg In 0.9% NaCl with KCl 20 Meq/l 1,000 ml @ 100 mls/hr IVPB .BY DURATION GARIMA Rx#: [id number] Oral 360 720 Output: Urine 1700 520 Other: # Voids 0 # Bowel Movements 0 - Exam GENERAL: The patient is alert and oriented x3, not in any acute distress. Well developed, well nourished. HEENT: Pupils are round and equally reacting to light. EOMI. No scleral icterus. No conjunctival pallor. Normocephalic, atraumatic. No pharyngeal erythema. No thyromegaly. CARDIOVASCULAR: S1 and S2 present. No murmurs, rubs, or gallops. PULMONARY: Chest is clear to auscultation, no wheezing or crackles. ABDOMEN: Soft, nontender, nondistended, normoactive bowel sounds. No palpable organomegaly. MUSCULOSKELETAL: No joint swelling or deformity. EXTREMITIES: No cyanosis, clubbing, or pedal edema. NEUROLOGICAL: Gross neurological examination did not reveal any focal deficits. SKIN: No rashes. no petechiae. - Labs CBC & Chem 7: 02/07/21 05:43 02/07/21 05:43 Labs: Abnormal Lab Results - Last 24 Hours (Table) 02/07/21 02/07/21 Range/Units 05:43 05:43 RBC 3.97 L (4.10-5.20) X 10*6/uL Hgb 9.6 L (12.0-15.0) g/dL Hct 33.0 L (37.2-46.3) % MCH 24.2 L (27.0-32.0) pg MCHC 29.1 L (32.0-37.0) g/dL RDW 17.6 H (11.5-14.5) % Sodium 136 L (137-145) mmol/L Calcium 8.3 L (8.4-10.2) mg/dL Assessment and Plan Assessment: GERD status post elective laparoscopic sleeve gastrectomy with repair of hiatal hernia. Hiatal hernia status post repair Leukocytosis, most likely reactive, no need for antibiotic Plan: this is a pleasant 50 years old female who presents with GERD status post gastric sleeve surgery. Continue with pain management, Zofran for nausea vomiting. Continue with diet per surgery team Labs and medication were reviewed.. Continue same treatment. Continue with symptomatic treatment. Resume home medication. Monitor lytes and vitals. DVT and GI prophylaxis. Further recommendationsas per clinical course of the patient DVT prophylaxis per surgery team GI prophylaxis: Continue with Protonix Thank you for consulting us
[2021-02-07] MEDS: METOCLOPRAMIDE 5 MG/ML 2 ML VIAL IVP PRN (18:30)
[2021-02-07] MEDS: HYDROcodone/APAP 5-325MG 1 EACH TAB PO PRN (21:42)
[2021-02-08] MEDS: KETOROLAC 15 MG/ML 1 ML VIAL IVP SCH ×3 (00:20→11:06)
[2021-02-08] MEDS: HYDROcodone/APAP 5-325MG 1 EACH TAB PO PRN ×2 (03:27→12:45)
[2021-02-08 03:35] VITALS: TEMP 98.1
[2021-02-08] MEDS: 1: THIAMINE 100 MG, FOLIC ACID 1 MG in 0.9% NACL WITH KCL 20 MEQ/L 1,000 ML 2: 0.9% NAC IVPB SCH ×2 (03:42→13:03)
[2021-02-08] MEDS: ENOXAPARIN 40 MG/0.4 ML SYRINGE SQ SCH (07:38)
[2021-02-08] MEDS: PANTOPRAZOLE 40 MG/10 ML VIAL IV SCH (07:38)
[2021-02-08] MEDS: ALBUTEROL NEBULIZED 2.5 MG/3 ML INHALATION SCH ×2 (08:26→11:28)
[2021-02-08 09:17] VITALS: BP 117/78; PULSE 81; RESP 18
--- NOTE | 2021-02-08 10:33 | P.PN ---
Progress Note - Text Progress Note Date: 02/08/21 Patient feels better today. She wishes to go home. On exam vital signs are stable. Abdomen soft. Status post sleeve gastrectomy. Patient was discharged home. She'll follow-up with Dr. Granda next week
[2021-02-08] MEDS: ONDANSETRON 4 MG/2 ML VIAL IVP PRN (12:46)
== END 2021-02-08 13:43 | disposition home or self-care (01) | DRG 621 ==
LOC: 2ORMAIN 11:00 → 4SSUR 15:37
PROVIDERS: ADMIT Surgery; ATTEND Surgery
PROC: 0BQT4ZZ Repair Diaphragm, Percutaneous Endoscopic Approach (ICD-10-PCS; 2021-02-05)
PROC: 0DB64Z3 Excision of Stomach, Percutaneous Endoscopic Approach, Vertical (ICD-10-PCS; principal; 2021-02-05 12:30)
DX: E66.01 Morbid (severe) obesity due to excess calories (principal); Z68.36 Body mass index [BMI] 36.0-36.9, adult; K44.9 Diaphragmatic hernia without obstruction or gangrene; Z79.899 Other long term (current) drug therapy; Z20.822 Contact with and (suspected) exposure to COVID-19; K21.9 Gastro-esophageal reflux disease without esophagitis; Z87.01 Personal history of pneumonia (recurrent); Z90.49 Acquired absence of other specified parts of digestive tract; Z90.710 Acquired absence of both cervix and uterus; E78.00 Pure hypercholesterolemia, unspecified; D72.829 Elevated white blood cell count, unspecified; G89.29 Other chronic pain; F41.9 Anxiety disorder, unspecified; G47.30 Sleep apnea, unspecified; K29.70 Gastritis, unspecified, without bleeding; M54.9 Dorsalgia, unspecified; F32.9 Major depressive disorder, single episode, unspecified
CPT/HCPCS: 74240; 80048; 80051; 82310; 82565; 83735; 84100; 84520; 85025; 87635; 88307; 94760; 94762

== ENCOUNTER → 2021-05-12 | Outpatient (CLI) | payer BC, OTHER ==
[2021-05-12 15:26] VITALS: BP 137/90; PULSE 109; RESP 16; TEMP 98.2; BMI 27.3
--- NOTE | 2021-05-12 17:58 | P.BASOAP ---
Subjective Progress Note Date: 05/12/21 Principal diagnosis: Morbid obesity Patient underwent sleeve gastrectomy in January. Apparently her insurance was canceled by her ex- just prior to the surgery without her knowledge. Patient did not follow up with us at all partly for that reason. Has done well. Preoperative weight was around 214 and current weight 159. Denies nausea or vomiting. Patient does state she is not drinking enough liquids. She has a difficult time quantifying both liquid and protein intake in fact. Met with dietary today. Dietitian believes she is eating less than 20 g of protein daily. Patient states she does not tolerate the protein shakes. No labs since surgery. She never did take her antiacids postoperatively. Objective - Vital Signs Vital signs: Vital Signs Temp 98.2 F 05/12/21 15:19 Pulse 109 H 05/12/21 15:19 Resp 16 05/12/21 15:19 BP 137/90 05/12/21 15:19 Pulse Ox Intake & Output 05/11/21 05/12/21 05/12/21 18:59 06:59 18:59 Weight 72.121 kg - Exam Abdomen: Soft, nondistended, nontender, incisions clean and dry Assessment/Plan (1) Obesity (BMI 30-39.9) Narrative/Plan: 50 oh female underwent sleeve gastrectomy 3-4 months ago. Patient with no follow-up because of apparent lack of insurance. We discussed how this has impacted her postoperative course and how ideally she would've still followed up with us particularly given the global period involved. Patient now with less than ideal protein and liquid intake. We'll check routine labs. Patient spent time with our dietitian today to review the necessary protein and liquid amounts. Plan follow up 4-6 weeks. Plan: Date: 05/12/21 Initial Weight: 95.254 kg Initial BMI: 36.0 Current Weight: 72.121 kg Current BMI: 27.3 Type of Surgery: Total Volume in Band: Previous Volume: Volume Removed: Volume Added: Band Size:
[2021-05-12 23:57] LABS: HCT 44.1 % (37.2-46.3); HGB 13.5 g/dL (12.0-15.0); MCH 26.5 pg (27.0-32.0); MCHC 30.6 g/dL (32.0-37.0); MCV 86.6 fL (80.0-97.0); Mean Platelet Volume 11.9 fL (9.5-12.2); Platelet Count 405 X 10*3/uL (140-440); RBC 5.09 X 10*6/uL (4.10-5.20); RDW 15.9 % (11.5-14.5); WBC 7.29 X 10*3/uL (4.50-10.00)
[2021-05-13 01:33] LABS: ALT 30 U/L (8-44); AST 33 U/L (13-35); African American GFR (CKD) 107.9 (60.0-200.0); Albumin 4.5 g/dL (3.8-4.9); Albumin/Globulin Ratio 1.63 (1.60-3.17); Alkaline Phosphatase 148 U/L (41-126); BUN/Creat Ratio 20.03 Ratio (12.00-20.00); Calcium 9.1 mg/dL (8.7-10.3); Carbon Dioxide 20.9 mmol/L (20.0-27.5); Chloride 104 mmol/L (96-109); Globulin 2.7 g/dL (1.6-3.3); Glucose 94 mg/dL (70-110); Non-African American GFR(CKD) 93.1 (60.0-200.0); Potassium 3.7 mmol/L (3.5-5.5); Sodium 141 mmol/L (135-145); Total Protein 7.2 g/dL (6.2-8.2)
[2021-05-13 03:42] LABS: Iron 62 ug/dL (50-170)
[2021-05-13 04:29] LABS: Folate, Serum >20.00 ng/mL (4.40-31.00)
== END | disposition home or self-care (01) ==
LOC: BARWHC3 15:03
PROVIDERS: ATTEND Surgery
DX: E66.01 Morbid (severe) obesity due to excess calories (principal); K90.89 Other intestinal malabsorption; E55.9 Vitamin D deficiency, unspecified; Z68.30 Body mass index [BMI] 30.0-30.9, adult
CPT/HCPCS: 36415; 80053; 82306; 82607; 82746; 83540; 84425; 85027; 97803; 99211

== ENCOUNTER 2021-08-03 09:06 | Emergency (ER) | payer OTHER ==
[2021-08-03 09:13] VITALS: TEMP 98.9
[2021-08-03] MEDS ORDERED: FAMOTIDINE 20 MG/2 ML VIAL IV STA (09:58)
[2021-08-03] MEDS ORDERED: SODIUM CHLORIDE 0.9% 500 ML 500 ML IV STA (09:58)
[2021-08-03] MEDS ORDERED: SODIUM CHLORIDE 0.9% 1,000 ML IV STA (09:58)
[2021-08-03] MEDS ORDERED: ONDANSETRON 4 MG/2 ML VIAL IVP STA (09:58)
[2021-08-03 10:25] LABS: Basophils # (A) 0.1 k/uL (0-0.2); Basophils % (A) 1 %; Eosinophils # (A) 0.2 k/uL (0-0.7); Eosinophils % (A) 4 %; HCT 38.5 % (34.0-46.0); HGB 12.3 gm/dL (11.4-16.0); Lymphocytes # (A) 1.7 k/uL (1.0-4.8); Lymphocytes % (A) 28 %; MCH 28.9 pg (25.0-35.0); MCHC 31.9 g/dL (31.0-37.0); MCV 90.6 fL (80.0-100.0); Mean Platelet Volume 8.5; Monocytes # (A) 0.3 k/uL (0-1.0); Monocytes % (A) 4 %; Neutrophils # (A) 3.7 k/uL (1.3-7.7); Neutrophils % (A) 61 %; Platelet Count 309 k/uL (150-450); RBC 4.25 m/uL (3.80-5.40); RDW 13.8 % (11.5-15.5)
[2021-08-03 10:40] LABS: ALT 36 U/L (4-34); AST 41 U/L (14-36); African American GFR (CKD) >90 (>60 ml/min/1.73 sqM); Albumin 3.7 g/dL (3.5-5.0); Alkaline Phosphatase 131 U/L (38-126); Amylase 92 U/L (30-110); Anion Gap 6 mmol/L; Blood Urea Nitrogen 12 mg/dL (7-17); Calcium 8.4 mg/dL (8.4-10.2); Carbon Dioxide 27 mmol/L (22-30); Chloride 108 mmol/L (98-107); Glucose 92 mg/dL (74-99); Lipase 134 U/L (23-300); Magnesium 1.9 mg/dL (1.6-2.3); Non-African American GFR(CKD) >90 (>60 ml/min/1.73 sqM); Potassium 3.8 mmol/L (3.5-5.1); Sodium 141 mmol/L (137-145); Total Bilirubin 0.9 mg/dL (0.2-1.3); Total Protein 6.5 g/dL (6.3-8.2)
--- NOTE | 2021-08-03 10:40 | ED ---
Nausea/Vomiting/Diarrhea HPI - General Chief complaint: Nausea/Vomiting/Diarrhea Stated complaint: nausea Time Seen by Provider: 08/03/21 09:34 Source: patient, RN notes reviewed Mode of arrival: ambulatory Limitations: no limitations - History of Present Illness Initial comments: 50-year-old female sent emergency dept chief complaint of possible dehydration. Patient states she just feels nauseated not unable to eat much at she had gastric sleeve surgery. Patient states she just feels very tired. Denies any focal weakness no chest pain or shortness of breath. She didn't headache but resolved. Patient states she is scheduled follow-up with Dr. rangel who performed her surgery. She denies any dysuria hematuria patient offers no other complaints. - Related Data Home Medications Medication Instructions Recorded Confirmed clonazePAM [KlonoPIN] 1 mg PO BID 06/27/20 08/03/21 Venlafaxine HCl ER [Effexor Xr] 75 mg PO DAILY 08/03/21 08/03/21 Previous Rx's Medication Instructions Recorded Famotidine [Pepcid] 20 mg PO BID #28 tablet 08/03/21 Ondansetron Odt [Zofran Odt] 4 mg PO Q8HR PRN #10 tab 08/03/21 Allergies Allergy/AdvReac Type Severity Reaction Status Date / Time No Known Allergies Allergy Verified 08/03/21 10:30 Review of Systems ROS Statement: Those systems with pertinent positive or pertinent negative responses have been documented in the HPI. ROS Other: All systems not noted in ROS Statement are negative. Past Medical History Past Medical History: GERD/Reflux, Pneumonia Additional Past Medical History / Comment(s): states "double pneumonia" last month -hospitalized at [facility] diarrhea. History of Any Multi-Drug Resistant Organisms: None Reported Past Surgical History: Appendectomy, Cholecystectomy, Hysterectomy Past Anesthesia/Blood Transfusion Reactions: No Reported Reaction, Motion Sickness Past Psychological History: Anxiety, Depression Smoking Status: Never smoker Past Alcohol Use History: Occasional Past Drug Use History: None Reported - Past Family History Mother Family Medical History: No Reported History General Exam Limitations: no limitations General appearance: alert, in no apparent distress Head exam: Present: atraumatic, normocephalic, normal inspection Eye exam: Present: normal appearance, PERRL, EOMI. Absent: scleral icterus, conjunctival injection, periorbital swelling ENT exam: Present: normal exam, mucous membranes moist Neck exam: Present: normal inspection, full ROM. Absent: tenderness, meningismus, lymphadenopathy Respiratory exam: Present: normal lung sounds bilaterally. Absent: respiratory distress, wheezes, rales, rhonchi, stridor Cardiovascular Exam: Present: regular rate, normal rhythm, normal heart sounds. Absent: systolic murmur, diastolic murmur, rubs, gallop, clicks GI/Abdominal exam: Present: soft, normal bowel sounds. Absent: distended, tenderness, guarding, rebound, rigid Neurological exam: Present: alert, oriented X3 Skin exam: Present: warm, dry, intact, normal color. Absent: rash Course Vital Signs 08/03/21 09:11 Temperature 98.9 F Pulse Rate 56 L Respiratory 20 Rate Blood Pressure 138/88 O2 Sat by Pulse 99 Oximetry Medical Decision Making - Medical Decision Making Patient is acutely dehydrated patient was given fluid bolus, Zofran. Patient will be discharged in stable condition with follow-up with surgeon. Return parameters were discussed. - Lab Data Result diagrams: 08/03/21 10:12 08/03/21 10:12 Lab Results 08/03/21 08/03/21 08/03/21 Range/Units 10:12 10:12 10:12 WBC 6.0 (3.8-10.6) k/uL RBC 4.25 (3.80-5.40) m/uL Hgb 12.3 (11.4-16.0) gm/dL Hct 38.5 (34.0-46.0) % MCV 90.6 (80.0-100.0) fL MCH 28.9 (25.0-35.0) pg MCHC 31.9 (31.0-37.0) g/dL RDW 13.8 (11.5-15.5) % Plt Count 309 (150-450) k/uL MPV 8.5 Neutrophils % 61 % Lymphocytes % 28 % Monocytes % 4 % Eosinophils % 4 % Basophils % 1 % Neutrophils # 3.7 (1.3-7.7) k/uL Lymphocytes # 1.7 (1.0-4.8) k/uL Monocytes # 0.3 (0-1.0) k/uL Eosinophils # 0.2 (0-0.7) k/uL Basophils # 0.1 (0-0.2) k/uL Sodium 141 (137-145) mmol/L Potassium 3.8 (3.5-5.1) mmol/L Chloride 108 H (98-107) mmol/L Carbon Dioxide 27 (22-30) mmol/L Anion Gap 6 mmol/L BUN 12 (7-17) mg/dL Creatinine 0.70 (0.52-1.04) mg/dL Est GFR (CKD-EPI)AfAm >90 (>60 ml/min/1.73 sqM) Est GFR (CKD-EPI)NonAf >90 (>60 ml/min/1.73 sqM) Glucose 92 (74-99) mg/dL Calcium 8.4 (8.4-10.2) mg/dL Magnesium 1.9 (1.6-2.3) mg/dL Total Bilirubin 0.9 (0.2-1.3) mg/dL AST 41 H (14-36) U/L ALT 36 H (4-34) U/L Alkaline Phosphatase 131 H (38-126) U/L Total Protein 6.5 (6.3-8.2) g/dL Albumin 3.7 (3.5-5.0) g/dL Amylase 92 (30-110) U/L Lipase 134 (23-300) U/L Urine Color Yellow Urine Appearance Cloudy H (Clear) Urine pH 6.0 (5.0-8.0) Ur Specific [place] 1.034 (1.001-1.035) Urine Protein 1+ H (Negative) Urine Glucose (UA) Negative (Negative) Urine Ketones 2+ H (Negative) Urine Blood Negative (Negative) Urine Nitrite Negative (Negative) Urine Bilirubin Negative (Negative) Urine Urobilinogen 2.0 (<2.0) mg/dL Ur Leukocyte Esterase Moderate H (Negative) Urine RBC 1 (0-5) /hpf Urine WBC 5 (0-5) /hpf Ur Squamous Epith Cells 10 H (0-4) /hpf Hyaline Casts 3 H (0-2) /lpf Urine Mucus Many H (None) /hpf Disposition Clinical Impression: GERD (gastroesophageal reflux disease), Dehydration Disposition: HOME SELF-CARE Condition: Stable Instructions (If sedation given, give patient instructions): Dehydration (ED) Additional Instructions: Please return to the Emergency Department if symptoms worsen or any other concerns. Prescriptions: Famotidine [Pepcid] 20 mg PO BID #28 tablet Ondansetron Odt [Zofran Odt] 4 mg PO Q8HR PRN #10 tab PRN Reason: Nausea Is patient prescribed a controlled substance at d/c from ED?: No Referrals: Franco Valles MD [Primary Care Provider] - 1-2 days Time of Disposition: 12:08
[2021-08-03 11:16] LABS: Appearance,Urine Cloudy (Clear); Bilirubin,Urine Negative (Negative); Blood,Urine Negative (Negative); Color,Urine Yellow; Glucose,Urine (UA) Negative (Negative); Hyaline Casts,Urine 3 /lpf (0-2); Ketones,Urine 2+ (Negative); Leukocyte Esterase,Urine Moderate (Negative); Mucus,Urine Many /hpf; Nitrite,Urine Negative (Negative); Protein,Urine 1+ (Negative); RBC,Urine 1 /hpf (0-5); Specific Gravity,Urine 1.034 (1.001-1.035); Squamous Epithelial Cell,Urine 10 /hpf (0-4); WBC,Urine 5 /hpf (0-5)
[2021-08-03 12:09] VITALS: BP 131/83; PULSE 70; RESP 18
== END 2021-08-03 12:43 | disposition home or self-care (01) ==
LOC: EC 09:06
DX: K21.9 Gastro-esophageal reflux disease without esophagitis (principal); E86.0 Dehydration
CPT/HCPCS: 36415; 80053; 82150; 83690; 83735; 85025; 81001; 99284; 96374; 96375; 96361; J2405

== ENCOUNTER 2022-12-19 11:47 | Observation (INO) | payer OTHER ==
[2022-12-19] MEDS ORDERED: LORazepam 2 MG/ML INJ IV STA (11:53)
[2022-12-19] MEDS ORDERED: SODIUM CHLORIDE 0.9% 1,000 ML IV STA ×2 (11:53→12:37)
[2022-12-19] MEDS ORDERED: ONDANSETRON 4 MG/2 ML VIAL IVP STA (11:53)
--- NOTE | 2022-12-19 11:59 | ED ---
Overdose HPI - General Chief Complaint: Overdose Stated Complaint: Anxiety/Overdose Time Seen by Provider: 12/19/22 11:48 Source: patient, RN notes reviewed Mode of arrival: ambulatory Limitations: no limitations - History of Present Illness Initial Comments: This is a 52-year-old female who presents to the emergency department for an intentional overdose. Patient said that she was having an anxiety attack and proceeded to take a handful of Wellbutrin. Unsure if she did this last night or this morning. She did call EMS herself this morning. Patient was unsure how much she took, however based on the math done by EMS, she likely ingested 20-22 tabl ets of Wellbutrin. This was the SR version, 100 mg, suggesting she consumed 2000-2200mg. Patient states that she has had problems with anxiety and depression for a long period of time, but denies any history of overdoses or other forms of self-harm. Patient does currently feel suicidal. Denies any homicidal ideations or auditory/visual hallucinations. On initial evaluation she is hysterical and cannot stop crying. States that everything in her life is causing her to feel this way and she feels like nobody cares about her. Currently requesting medication to help her calm down. MD Complaint: intentional overdose How Overdose Was Discovered: called 911 - Related Data Home Medications Medication Instructions Recorded Confirmed clonazePAM [KlonoPIN] 1 mg PO BID 06/27/20 12/19/22 Venlafaxine HCl ER [Effexor Xr] 150 mg PO DAILY 08/03/21 12/19/22 Allergies Allergy/AdvReac Type Severity Reaction Status Date / Time No Known Allergies Allergy Verified 12/19/22 15:23 Review of Systems ROS Statement: Those systems with pertinent positive or pertinent negative responses have been documented in the HPI. ROS Other: All systems not noted in ROS Statement are negative. Past Medical History Past Medical History: GERD/Reflux, Pneumonia Additional Past Medical History / Comment(s): states "double pneumonia" last month -hospitalized at [facility]., diarrhea. History of Any Multi-Drug Resistant Organisms: None Reported Past Surgical History: Appendectomy, Cholecystectomy, Hysterectomy Past Anesthesia/Blood Transfusion Reactions: No Reported Reaction, Motion Sickness Past Psychological History: Anxiety, Depression Smoking Status: Never smoker Past Alcohol Use History: Occasional Past Drug Use History: None Reported - Past Family History Mother Family Medical History: No Reported History General Exam Limitations: no limitations General appearance: alert, anxious, in distress Head exam: Present: atraumatic, normocephalic, normal inspection Respiratory exam: Present: normal lung sounds bilaterally. Absent: respiratory distress, wheezes, rales, rhonchi, stridor Cardiovascular Exam: Present: regular rate, normal rhythm, normal heart sounds. Absent: systolic murmur, diastolic murmur, rubs, gallop, clicks Neurological exam: Present: alert, oriented X3, CN II-XII intact Psychiatric exam: Present: anxious, suicidal ideation, other (tearful). Absent: homicidal ideation Skin exam: Present: warm, dry, intact, normal color. Absent: rash Course Vital Signs 12/19/22 12/19/22 12/19/22 11:49 12:58 14:00 Temperature 98 F Pulse Rate 101 H 89 98 Respiratory 28 H 18 18 Rate Blood Pressure 132/93 141/91 139/91 O2 Sat by Pulse 100 100 96 Oximetry 12/19/22 12/19/22 15:13 15:37 Temperature Pulse Rate 98 115 H Respiratory 18 18 Rate Blood Pressure 148/81 O2 Sat by Pulse 96 96 Oximetry Medical Decision Making - Medical Decision Making This is a 52-year-old female who presents to the emergency department for an intentional overdose. Was pt. sent in by a medical professional or institution? @ -No Did you speak to anyone other than the patient for history? @ -EMS provided the majority of the information, with the patient corroborating what was said and explaining that she did not have any specific triggers. Did you review nursing and triage notes? @ -Yes, and I agree, it is accurate with regards to the patient's symptoms. Were old charts reviewed? @ -No Differential Diagnosis? @ -Differential Mental Health Depression, anxiety, bipolar, psychosis, schizophrenia, borderline personality, situational depression, adjustment disorder, behavioral disorder, brain tumor, malingering, substance abuse, encephalopathy, medication reaction, dementia, hypothyroidism, degenerative neurologic disorder, lupus.... This is not meant to be all-inclusive list EKG interpreted by me (3pts min.)? @ -EKG interpreted by me demonstrating the following: Sinus rhythm. Ventricular rate 93 beats per minute, IL interval 135 ms, QRS duration 86 ms, QTC 416 ms. X-rays interpreted by me (1pt min.)? @ -Not obtained CT interpreted by me (1pt min.)? @ -Not obtained U/S interpreted by me (1pt. min.)? @ -Not obtained What testing was considered but not performed? (CT, X-rays, U/S, labs)? Why? @ -None What meds were considered but not given? Why? @ -None Did you discuss the management of the patient with other professionals? @ -Yes, poison control, who advised neuro monitoring for 24 hours and psychiatric evaluation in the morning. They also advised a repeat EKG after 4 hours, around 1600. I then spoke with Dr. Stone, who accepts the patient for admission. Did you reconcile home meds? @ -No Was smoking cessation discussed for >3mins.? @ -No Was critical care preformed (if so, how long)? @ -No Were there social determinants of health that impacted care today? How? (Homelessness, low income, unemployed, alcoholism, drug addiction, transportation, low edu. Level, literacy, decrease access to med. care, alf, rehab)? @ -No Was there de-escalation of care discussed even if they declined? (Discuss DNR or withdrawal of care, Hospice)? @ -No What co-morbidities impacted this encounter? (DM, HTN, Smoking, COPD, CAD, Cancer, CVA, Hep., AIDS, mental health diagnosis, sleep apnea, morbid obesity)? @ -Anxiety, depression Was patient admitted / discharged? @ -Admitted. Patient was immediately hooked up to the director of cardiac rehabilitation and an EKG was obtained. This did not demonstrate any signs of QRS or QTC prolongation. She was given a liter bolus of IV fluids as well as 2 mg of Ativan due to the risk for seizures and associated agitation. Seizure precautions were also initiated. Patient's nurse spoke with poison control, who advised that she'll need neuro monitoring for 24 hours before she can be evaluated by psychiatry. Patient is unsure if she took the medication last night or this morning, and because of this, poison control advised psychiatric evaluation tomorrow morning. They also advised a repeat EKG after 4 hours, which would be about 1600. Lab work obtained revealing an elevated lactic acid of 6.9 and hypokalemia with a potassium of 3.0. 40 mEq of K-dur was subsequently administered. Patient admi tted to medicine for further management, with plan for psychiatric consult in the morning if she remains stable. Undiagnosed new problem with uncertain prognosis? @ -None Drug Therapy requiring intensive monitoring for toxicity (Heparin, Nitro, Insulin, Cardizem)? @ -None Were any procedures done? @ -None Diagnosis/symptom? @ -Intentional overdose, hypokalemia Acute, or Chronic, or Acute on Chronic? @ -Acute Uncomplicated (without systemic symptoms) or Complicated (systemic symptoms)? @ -Complicated Side effects of treatment? @ -None Exacerbation, Progression, or Severe Exacerbation] @ -Not applicable Poses a threat to life or bodily function? @ -Yes This case was discussed in detail with the attending ED physician, Dr. Gage. Presentation, findings, and treatment plan discussed in detail as well. - Lab Data Result diagrams: 12/19/22 12:08 12/19/22 12:08 Lab Results 12/19/22 12/19/22 12/19/22 Range/Units 12:08 12:08 12:08 WBC 7.4 (3.8-10.6) k/uL RBC 4.19 (3.80-5.40) m/uL Hgb 12.3 (11.4-16.0) gm/dL Hct 37.5 (34.0-46.0) % MCV 89.6 (80.0-100.0) fL MCH 29.4 (25.0-35.0) pg MCHC 32.9 (31.0-37.0) g/dL RDW 13.2 (11.5-15.5) % Plt Count 289 (150-450) k/uL MPV 9.2 Neutrophils % 83 % Lymphocytes % 11 % Monocytes % 3 % Eosinophils % 1 % Basophils % 0 % Neutrophils # 6.1 (1.3-7.7) k/uL Lymphocytes # 0.8 L (1.0-4.8) k/uL Monocytes # 0.2 (0-1.0) k/uL Eosinophils # 0.1 (0-0.7) k/uL Basophils # 0.0 (0-0.2) k/uL Sodium 140 (137-145) mmol/L Potassium 3.0 L (3.5-5.1) mmol/L Chloride 109 H (98-107) mmol/L Carbon Dioxide 17 L (22-30) mmol/L Anion Gap 14 mmol/L BUN 21 H (7-17) mg/dL Creatinine 0.65 (0.52-1.04) mg/dL Est GFR (CKD-EPI)AfAm >90 (>60 ml/min/1.73 sqM) Est GFR (CKD-EPI)NonAf >90 (>60 ml/min/1.73 sqM) Glucose 201 H (74-99) mg/dL Lactic Ac Sepsis Rflx Plasma Lactic Acid William 6.9 H* (0.7-2.0) mmol/L Calcium 8.8 (8.4-10.2) mg/dL Total Bilirubin 1.2 (0.2-1.3) mg/dL AST 31 (14-36) U/L ALT 37 H (4-34) U/L Alkaline Phosphatase 83 (38-126) U/L Total Protein 6.1 L (6.3-8.2) g/dL Albumin 3.8 (3.5-5.0) g/dL Salicylates <1.0 mg/dL Acetaminophen <10.0 ug/mL Serum Alcohol <10 mg/dL 12/19/22 12/19/22 12/19/22 Range/Units 12:33 14:55 15:29 WBC (3.8-10.6) k/uL RBC (3.80-5.40) m/uL Hgb (11.4-16.0) gm/dL Hct (34.0-46.0) % MCV (80.0-100.0) fL MCH (25.0-35.0) pg MCHC (31.0-37.0) g/dL RDW (11.5-15.5) % Plt Count (150-450) k/uL MPV Neutrophils % % Lymphocytes % % Monocytes % % Eosinophils % % Basophils % % Neutrophils # (1.3-7.7) k/uL Lymphocytes # (1.0-4.8) k/uL Monocytes # (0-1.0) k/uL Eosinophils # (0-0.7) k/uL Basophils # (0-0.2) k/uL Sodium (137-145) mmol/L Potassium (3.5-5.1) mmol/L Chloride (98-107) mmol/L Carbon Dioxide (22-30) mmol/L Anion Gap mmol/L BUN (7-17) mg/dL Creatinine (0.52-1.04) mg/dL Est GFR (CKD-EPI)AfAm (>60 ml/min/1.73 sqM) Est GFR (CKD-EPI)NonAf (>60 ml/min/1.73 sqM) Glucose (74-99) mg/dL Lactic Ac Sepsis Rflx Y Y Plasma Lactic Acid William 3.2 H* (0.7-2.0) mmol/L Calcium (8.4-10.2) mg/dL Total Bilirubin (0.2-1.3) mg/dL AST (14-36) U/L ALT (4-34) U/L Alkaline Phosphatase (38-126) U/L Total Protein (6.3-8.2) g/dL Albumin (3.5-5.0) g/dL Salicylates mg/dL Acetaminophen ug/mL Serum Alcohol mg/dL Disposition Clinical Impression: Intentional overdose, Hypokalemia Disposition: ADMITTED IP TO THIS [facility] Referrals: Franco Valles MD [Primary Care Provider] - 1-2 days
[2022-12-19 12:17] LABS: Basophils % (A) 0 %; Eosinophils # (A) 0.1 k/uL (0-0.7); Eosinophils % (A) 1 %; HCT 37.5 % (34.0-46.0); HGB 12.3 gm/dL (11.4-16.0); Lymphocytes # (A) 0.8 k/uL (1.0-4.8); Lymphocytes % (A) 11 %; MCH 29.4 pg (25.0-35.0); MCHC 32.9 g/dL (31.0-37.0); MCV 89.6 fL (80.0-100.0); Mean Platelet Volume 9.2; Monocytes # (A) 0.2 k/uL (0-1.0); Monocytes % (A) 3 %; Neutrophils # (A) 6.1 k/uL (1.3-7.7); Neutrophils % (A) 83 %; Platelet Count 289 k/uL (150-450); RBC 4.19 m/uL (3.80-5.40); RDW 13.2 % (11.5-15.5); WBC 7.4 k/uL (3.8-10.6)
[2022-12-19 12:31] LABS: AST 31 U/L (14-36); Acetaminophen <10.0 ug/mL; African American GFR (CKD) >90 (>60 ml/min/1.73 sqM); Albumin 3.8 g/dL (3.5-5.0); Alcohol <10 mg/dL; Alkaline Phosphatase 83 U/L (38-126); Anion Gap 14 mmol/L; Blood Urea Nitrogen 21 mg/dL (7-17); Calcium 8.8 mg/dL (8.4-10.2); Carbon Dioxide 17 mmol/L (22-30); Chloride 109 mmol/L (98-107); Glucose 201 mg/dL (74-99); Non-African American GFR(CKD) >90 (>60 ml/min/1.73 sqM); Salicylate <1.0 mg/dL; Sodium 140 mmol/L (137-145); Total Bilirubin 1.2 mg/dL (0.2-1.3); Total Protein 6.1 g/dL (6.3-8.2)
[2022-12-19 12:57] LABS: ALT 37 U/L (4-34)
[2022-12-19] MEDS ORDERED: ACETAMINOPHEN TAB 325 MG TAB PO PRN (14:13)
[2022-12-19] MEDS ORDERED: ONDANSETRON 4 MG/2 ML VIAL IVP PRN (14:13)
[2022-12-19] MEDS ORDERED: IBUPROFEN 400 MG TAB PO PRN (14:13)
[2022-12-19] MEDS ORDERED: NALOXONE 0.4 MG/ML 1 ML VIAL IV PRN (14:13)
[2022-12-19] MEDS ORDERED: POTASSIUM CHLORIDE ER 20 MEQ TAB.ER PO STA (15:13)
[2022-12-19] MEDS ORDERED: LORazepam 2 MG/ML INJ IV PRN (18:46)
[2022-12-19 19:11] LABS: Amphetamine Screen,Urine Not Detected (NotDetected); Cocaine Screen,Urine Not Detected (NotDetected); Opiate Screen,Urine Not Detected (NotDetected); Phencyclidine Screen,Urine Not Detected (NotDetected); Urn Cannabinoid Scrn Not Detected (NotDetected)
[2022-12-19 19:12] LABS: Barbiturate Screen,Urine Not Detected (NotDetected); Benzodiazepines Screen,Urine Detected (NotDetected); Methadone Screen, Urine Not Detected (NotDetected); Oxycodone Screen, Urine Not Detected (NotDetected); Tricyclic Antidepressant,Urine Not Detected (NotDetected)
--- NOTE | 2022-12-19 19:54 | P.HPIM ---
History of Present Illness H&P Date: 12/19/22 Chief Complaint: Anxiety/overdose 52-year-old female who presents to the emergency department for an intentional overdose. Patient said that she was having an anxiety attack and proceeded to take a handful of Wellbutrin. Unsure if she did this last night or this morning. She did call EMS herself this morning. Patient was unsure how much she took, however based on the math done by EMS, she likely ingested 20-22 tablets of Wellbutrin. This was the SR version, 100 mg, suggesting she consumed 2000- 2200mg. Patient states that she has had problems with anxiety and depression for a long period of time, but denies any history of overdoses or other forms of self-harm. Patient does currently feel suicidal. Denies any homicidal ideations or auditory/visual hallucinations. On initial evaluation she is hysterical and cannot stop crying. States that everything in her life is causing her to feel this way and she feels like nobody cares about her. Currently requesting medi cation to help her calm down. Upon arrival to the ED patient was immediately hooked up to the county judge and an EKG was obtained. This did not demonstrate any signs of QRS or QTC prolongation. She was given a liter bolus of IV fluids as well as 2 mg of Ativan due to the risk for seizures and associated agitation. Seizure precautions were also initiated. Patient's nurse spoke with poison control, who advised that she'll need neuro monitoring for 24 hours before she can be evaluated by psychiatry. Patient is unsure if she took the medication last night or this morning, and because of this, poison control advised psychiatric evaluation tomorrow morning. They also advised a repeat EKG after 4 hours, which would be about 1600. Lab work obtained revealing an elevated lactic acid of 6.9 and hypokalemia with a potassium of 3.0. 40 mEq of K-dur was subsequently administered. Review of Systems REVIEW OF SYSTEMS: CONSTITUTIONAL: No fever, no malaise, no fatigue. HEENT: No recent visual problems or hearing problems. Denied any sore throat. CARDIOVASCULAR: No chest pain, orthopnea, PND, no palpitations, no syncope. PULMONARY: No shortness of breath, no cough, no hemoptysis. GASTROINTESTINAL: No diarrhea, no nausea, no vomiting, no abdominal pain. NEUROLOGICAL: No headaches, no weakness, no numbness. HEMATOLOGICAL: Denies any bleeding or petechiae. GENITOURINARY: Denies any burning micturition, frequency, or urgency. MUSCULOSKELETAL/RHEUMATOLOGICAL: Denies any joint pain, swelling, or any muscle pain. ENDOCRINE: Denies any polyuria or polydipsia. The rest of the 14-point review of systems is negative. Past Medical History Past Medical History: GERD/Reflux, Pneumonia Additional Past Medical History / Comment(s): states "double pneumonia" last month -hospitalized at [facility]., diarrhea. History of Any Multi-Drug Resistant Organisms: None Reported Past Surgical History: Appendectomy, Cholecystectomy, Hysterectomy Past Anesthesia/Blood Transfusion Reactions: No Reported Reaction, Motion Sickness Past Psychological History: Anxiety, Depression Smoking Status: Never smoker Past Alcohol Use History: Occasional Past Drug Use History: None Reported - Past Family History Mother Family Medical History: No Reported History Medications and Allergies Home Medications Medication Instructions Recorded Confirmed Type clonazePAM [KlonoPIN] 1 mg PO BID 06/27/20 12/19/22 History Venlafaxine HCl ER [Effexor Xr] 150 mg PO DAILY 08/03/21 12/19/22 History Allergies Allergy/AdvReac Type Severity Reaction Status Date / Time No Known Allergies Allergy Verified 12/19/22 15:23 Physical Exam Vitals: Vital Signs Temp Pulse Resp BP Pulse Ox 12/19/22 14:00 98 18 139/91 96 12/19/22 12:58 89 18 141/91 100 12/19/22 11:49 98 F 101 H 28 H 132/93 100 Intake and Output 12/18/22 12/19/22 12/19/22 22:59 06:59 14:59 Other: Weight 54.431 kg General appearance: alert, anxious, in distress Head exam: Present: atraumatic, normocephalic, normal inspection Respiratory exam: Present: normal lung sounds bilaterally. Absent: respiratory distress, wheezes, rales, rhonchi, stridor Cardiovascular Exam: Present: regular rate, normal rhythm, normal heart sounds. Absent: systolic murmur, diastolic murmur, rubs, gallop, clicks Neurological exam: Present: alert, oriented X3, CN II-XII intact Psychiatric exam: Present: anxious, suicidal ideation, other (tearful). Absent: homicidal ideation Skin exam: Present: warm, dry, intact, normal color. Absent: rash Results CBC & Chem 7: 12/19/22 12:08 12/19/22 12:08 Labs: Abnormal Lab Results - Last 24 Hours (Table) 12/19/22 12/19/22 12/19/22 Range/Units 12:08 12:08 12:08 Lymphocytes # 0.8 L (1.0-4.8) k/uL Potassium 3.0 L (3.5-5.1) mmol/L Chloride 109 H (98-107) mmol/L Carbon Dioxide 17 L (22-30) mmol/L BUN 21 H (7-17) mg/dL Glucose 201 H (74-99) mg/dL Plasma Lactic Acid William 6.9 H* (0.7-2.0) mmol/L ALT 37 H (4-34) U/L Total Protein 6.1 L (6.3-8.2) g/dL Assessment and Plan Assessment: 1. Intentional overdose Patient is admitted for continuous county judge and repeat EKG for any signs of QRS or QTC prolongation. - Patient was given a liter bolus of IV fluids as well as 2 mg of Ativan due to the risk for seizures and associated agitation. Seizure precautions were also initiated. -- Poison control advised that she'll need neuro monitoring for 24 hours before she can be evaluated by psychiatry. Patient is unsure if she took the medica tion last night or this morning, and because of this, poison control advised psychiatric evaluation tomorrow morning. They also advised a repeat EKG after 4 hours 2. Suicidal ideation; patient remains on suicidal precautions; to be evaluated by psychiatry once medically stable 3. Hypokalemia; potassium of 3.0. 40 mEq of K-dur was subsequently administered; we will continue to monitor electrolytes closely and supplement as needed 4. Lactic acidosis; likely related to overdosing dehydration; patient remains on IV fluids in form of normal saline; we will monitor and trend lactic acid levels 5. Mild renal injury; IV fluids normal saline at rate of 1 30 mL an hour; monitor strict COLLINS's, daily weights, renal function and electrolytes; avoid nephrotoxins and hypotension 6. Hyperglycemia; no history of diabetes mellitus; we will monitor Accu-Cheks every 6 hours and at bedtime with insulin sliding scale 7. Depression/anxiety; patient takes Klonopin and Effexor at home; we will avoid placing that on hold. The patient is evaluated by psychiatry
[2022-12-19 20:41] LABS: Glucose,Whole Blood 133 mg/dL (70-110)
[2022-12-19] MEDS: INSULIN ASPART (NovoLOG) 100 UNIT/ML VIAL SQ SCH (20:45)
[2022-12-20 07:32] LABS: Glucose,Whole Blood 106 mg/dL (70-110)
[2022-12-20] MEDS: INSULIN ASPART (NovoLOG) 100 UNIT/ML VIAL SQ SCH ×4 (07:58→19:57)
[2022-12-20 08:21] LABS: African American GFR (CKD) >90 (>60 ml/min/1.73 sqM); Anion Gap 5 mmol/L; Basophils % (A) 0 %; Blood Urea Nitrogen 18 mg/dL (7-17); Calcium 8.4 mg/dL (8.4-10.2); Carbon Dioxide 24 mmol/L (22-30); Chloride 110 mmol/L (98-107); Eosinophils % (A) 0 %; Glucose 96 mg/dL (74-99); HCT 34.9 % (34.0-46.0); HGB 11.9 gm/dL (11.4-16.0); Lymphocytes # (A) 1.6 k/uL (1.0-4.8); Lymphocytes % (A) 25 %; MCH 30.4 pg (25.0-35.0); MCV 89.6 fL (80.0-100.0); Mean Platelet Volume 10.1; Monocytes # (A) 0.4 k/uL (0-1.0); Monocytes % (A) 6 %; Neutrophils # (A) 4.1 k/uL (1.3-7.7); Neutrophils % (A) 66 %; Non-African American GFR(CKD) >90 (>60 ml/min/1.73 sqM); Platelet Count 184 k/uL (150-450); RBC 3.89 m/uL (3.80-5.40); RDW 13.3 % (11.5-15.5); Sodium 139 mmol/L (137-145); WBC 6.2 k/uL (3.8-10.6)
[2022-12-20 08:23] LABS: Magnesium 1.8 mg/dL (1.6-2.3); Potassium 3.9 mmol/L (3.5-5.1)
[2022-12-20 12:35] LABS: Glucose,Whole Blood 108 mg/dL (70-110)
--- NOTE | 2022-12-20 13:22 | P.CN ---
Psychiatric Consult - . Consult date: 12/20/22 Consult:: 12/20/22 11:39 IDENTIFYING DATA: This patient is a 52-year-old female, currently lives alone in a house, has 1 daughter, works as a dental hygienist, is . REASON FOR REFERRAL: Psychiatry was consulted for "intentional overdose, suicidal ideations" HISTORY OF PRESENT ILLNESS: The patient presented to the hospital on 12/19 for an overdose that was intentional. Patient apparently described having a panic attack and took a handful of her pills Wellbutrin. Patient currently called EMS herself. It was estimated patient took approximately 20-22 tablets of the pills. Patient apparently was crying heavily, endorsing depression and chronic anxiety and also was admitting to suicidal ideations in the ER. Patient was seen today sitting in the bed and was agreeable to seek a telegraphic typewriter installer. She claims that she was home alone and that she did "something really stupid" and states that she regretted it. She was fairly vague and evasive about talking with the overdose. She claims that she was "tired of living with depression and anxiety" and states that she has been mainly keeping to herself and feeling more isolated at home. States that her friends have not been speaking with her more. Also claims that her daughter moved away to college recently. She states that she has been dealing with depression and anxiety for about 25 years now. States she cannot really explain why she overdosed however was trying to minimize it. She claims that her sleep has been on and off, appetite as been fair . At this time patient denies any current suicidal or homical ideations, intent or plan. Patient denies any auditory, visual hallucinations and denies any paranoia or delusions. Patients admits to using no recreational drugs or cigarettes. PAST PSYCHIATRIC HISTORY: Patient has a a history of anxiety and depression. Suzanne clemens is currently on Effexor and BuSpar and other psychiatric medications that she does not know. He claims that she was last psychiatrically admitted about 10 years ago on the mental health unit. She claims that she sees a tall psychiatrist occasionally. Patient denies any history of suicide attempts in the past. Past Medical History: GERD/Reflux, Pneumonia Additional Past Medical History / Comment(s): states "double pneumonia" last month -hospitalized at [facility] diarrhea. History of Any Multi-Drug Resistant Organisms: None Reported Past Surgical History: Appendectomy, Cholecystectomy, Hysterectomy Past Anesthesia/Blood Transfusion Reactions: No Reported Reaction, Motion Sickness Past Psychological History: Anxiety, Depression Smoking Status: Never smoker Past Alcohol Use History: Occasional Past Drug Use History: None Reported ALLERGIES: as per EMR. CHEMICAL DEPENDENCY HISTORY: as per HPI. FAMILY PSYCHIATRIC/SUBSTANCE USE HISTORY: Claims that depression runs in her family SOCIAL HISTORY: Patient was born and raised in [place]. She states that she finished college and also a masters degree in administration. She currently works as a dental hygienist. She currently lives alone, she has one daughter who moved away recently, she lives in a house. She is at this time. Denies any legal history. MENTAL STATUS EXAM: General Appearance: Patient appears to be thin, stated age is alert, pleasant, and professionally cooperative. Patient appears to have fair hygiene and grooming wearing hospital gown with fair eye contact. Behavior: Patient is calmly lying in bed without any agitated behavior. Guarded and evasive Speech: Patient's speech is fluent and nonpressured. Mood/Affect: Patient reports their mood is "depressed and anxious", affect is incongruent Suicidality/Homicidality: Patient denies having any suicidal or homicidal ideation intent or plan. Perceptions: Patient denies any visual hallucinations and denies any auditory hallucinations Though content/process: There is no evidence of any delusional thought content and thought process is linear and goal-directed. Minimizing her overdose and suicide attempt, superficial. Memory and concentration: AOX3, grossly intact for the purposes of this session. Can spell "WORLD" backwards Judgment and insight: poor/impulsive IMPRESSIONS: Overdose on medications suicide attempt Major depressive disorder without psychotic features Anxiety disorder unspecified PLAN: -At this time patient DOES meet criteria for inpatient psychiatric admission. -Would recommend the following medication changes/additions: Patient is agreeable to start Cymbalta 30 mg daily for mood/anxiety, Remeron 7.5 mg daily at bedtime for sleep/mood. -Continue 1:1 sitter for safety until patient is safely transferred to the mental health unit. -Cannot leave AMA at this time. Patient will need a petition and certification if attempting to leave AMA. -When medically stable, patient is eligible for transfer to a psych bed when available. -Communicated plan to patient's nurse -Psychiatry will sign off at this time -Please contact with any questions.
[2022-12-20] MEDS: DULoxetine HCL 30 MG CAPSULE.DR PO SCH (14:00)
[2022-12-20 17:34] LABS: Glucose,Whole Blood 93 mg/dL (70-110)
[2022-12-20 20:00] LABS: Glucose,Whole Blood 115 mg/dL (70-110)
[2022-12-20] MEDS ORDERED: MIRTAZAPINE 15 MG TAB PO SCH (21:00)
[2022-12-20] MEDS ORDERED: traZODone HCL 50 MG TAB PO SCH (21:00)
[2022-12-21] MEDS: INSULIN ASPART (NovoLOG) 100 UNIT/ML VIAL SQ SCH ×2 (07:27→11:45)
[2022-12-21 07:34] LABS: Glucose,Whole Blood 106 mg/dL (70-110)
[2022-12-21] MEDS: DULoxetine HCL 30 MG CAPSULE.DR PO SCH (08:51)
--- NOTE | 2022-12-21 09:30 | P.DS ---
Providers Date of admission: 12/19/22 17:46 Expected date of discharge: 12/21/22 Attending physician: Franco Valles MD Consults: 12/19/22 22:47 Consult Physician Urgent Consulting Provider: Alfonso Robles Consult Reason/Comments: Intentional overdose - suicidal ideation Do you want consulting provider notified?: Yes, Notify in am Primary care physician: Franco Valles MD Hospital Course: Final Diagnoses: Intentional Overdose on medications, suicidal ideation Major depressive disorder Anxiety disorder Hospital course: This a 52-year-old female admitted with intentional overdose of BuSpar-handful. The record states she overdosed on Wellbutrin, the patient corrected us, reporting it was Buspar. Toxicology screen detected salicylates less than 1, acetaminophen less than 10, benzodiazepines high and serum alcohol less than 10. Reports she has high anxiety, depression with a panic attack after her daughter recently left for college. She called EMS herself. Received IV fluid hydration, electrolyte supplementation. Telemetry sinus rhythm. QT 0.38 reported per telemetry. Evaluated by psychiatry with med adjustments noted and appreciated. Denies chest pain, palpitations or shortness of breath. Denies chills or sweats. Significant clinical improvement. Vital signs stable. Patient is medically cleared for discharge to inpatient mental health unit today in a stable condition with guarded prognosis. The impression and plan of care has been dictated as directed. : I performed a history and examination of this patient, discussed the same with the dictator. I agree with the dictator's note ,documented as a scribe. Any additional findings or plans will be noted. Patient Condition at Discharge: Stable Plan - Discharge Summary Discharge Rx Participant: No New Discharge Prescriptions: New DULoxetine HCL [Cymbalta] 30 mg PO DAILY cap Mirtazapine [Remeron] 7.5 mg PO HS tab Acetaminophen Tab [Tylenol] 650 mg PO Q6HR PRN tab PRN Reason: Mild Pain Or Fever > 100.5 Discontinued clonazePAM [KlonoPIN] 1 mg PO BID Venlafaxine HCl ER [Effexor Xr] 150 mg PO DAILY Discharge Medication List Acetaminophen Tab [Tylenol] 650 mg PO Q6HR PRN tab 12/21/22 [Rx] DULoxetine HCL [Cymbalta] 30 mg PO DAILY cap 12/21/22 [Rx] Mirtazapine [Remeron] 7.5 mg PO HS tab 12/21/22 [Rx] Follow up Appointment(s)/Referral(s): Franco Valles MD [Primary Care Provider] - 1 Week (After DC from mental health in) Activity/Diet/Wound Care/Special Instructions: DC to Inpatient mental health unit Discharge Disposition: TRANSFER TO PSYCH HOSP/UNIT
[2022-12-21 14:38] VITALS: BP 126/82; PULSE 78; RESP 16; TEMP 99.4
--- NOTE | 2022-12-22 22:05 | P.PN ---
Subjective Progress Note Date: 12/20/22 52-year-old female who presents to the emergency department for an intentional overdose. Patient said that she was having an anxiety attack and proceeded to take a handful of Wellbutrin. Unsure if she did this last night or this morning. She did call EMS herself this morning. Patient was unsure how much she took, however based on the math done by EMS, she likely ingested 20-22 tablets of Wellbutrin. This was the SR version, 100 mg, suggesting she consumed 2000- 2200mg. Patient states that she has had problems with anxiety and depression for a long period of time, but denies any history of overdoses or other forms of self-harm. Patient does currently feel suicidal. Denies any homicidal ideations or auditory/visual hallucinations. On initial evaluation she is hysterical and cannot stop crying. States that everything in her life is causing her to feel this way and she feels like nobody cares about her. Currently requesting medication to help her calm down. Upon arrival to the ED patient was immediately hooked up to the surveillance system monitor and an EKG was obtained. This did not demonstrate any signs of QRS or QTC prolongation. She was given a liter bolus of IV fluids as well as 2 mg of Ativan due to the risk for seizures and associated agitation. Seizure precautions were also initiated. Patient's nurse spoke with poison control, who advised that she'll need neuro monitoring for 24 hours before she can be evaluated by psychiatry. Patient is unsure if she took the medication last night or this morning, and because of this, poison control advised psychiatric evaluation tomorrow morning. They also advised a repeat EKG after 4 hours, which would be about 1600. Lab work obtained revealing an elevated lactic acid of 6.9 and hypokalemia with a potassium of 3.0. 40 mEq of K-dur was subsequently administered. Objective - Vital Signs Vital signs: Vital Signs Temp 99.1 F 12/20/22 12:30 Pulse 85 12/20/22 12:30 Resp 16 12/20/22 12:30 BP 154/88 12/20/22 12:30 Pulse Ox 98 12/20/22 12:30 FiO2 Intake & Output 12/19/22 12/20/22 12/20/22 18:59 06:59 18:59 Intake Total 600 Balance 600 Weight 54.431 kg 54.431 kg Intake: Oral 600 Other: Voiding Method Toilet # Voids 2 - Labs CBC & Chem 7: 12/20/22 07:05 12/20/22 07:05 Labs: Abnormal Lab Results - Last 24 Hours (Table) 12/19/22 12/19/22 12/19/22 Range/Units 14:55 17:40 18:22 Chloride (98-107) mmol/L BUN (7-17) mg/dL POC Glucose (mg/dL) (70-110) mg/dL Plasma Lactic Acid William 3.2 H* 2.1 H* (0.7-2.0) mmol/L U Benzodiazepines Scrn Detected H (NotDetected) 12/19/22 12/20/22 Range/Units 20:38 07:05 Chloride 110 H (98-107) mmol/L BUN 18 H (7-17) mg/dL POC Glucose (mg/dL) 133 H (70-110) mg/dL Plasma Lactic Acid William (0.7-2.0) mmol/L U Benzodiazepines Scrn (NotDetected) Assessment and Plan Assessment: 1. Intentional overdose Patient is admitted for continuous surveillance system monitor and repeat EKG for any signs of QRS or QTC prolongation. - Patient was given a liter bolus of IV fluids as well as 2 mg of Ativan due to the risk for seizures and associated agitation. Seizure precautions were also initiated. -- Poison control advised that she'll need neuro monitoring for 24 hours before she can be evaluated by psychiatry. Patient is unsure if she took the medication last night or this morning, and because of this, poison control advised psychiatric evaluation tomorrow morning. They also advised a repeat EKG after 4 hours 2. Suicidal ideation; patient remains on suicidal precautions; to be evaluated by psychiatry once medically stable 3. Hypokalemia; potassium of 3.0. 40 mEq of K-dur was subsequently adminis tered; we will continue to monitor electrolytes closely and supplement as needed 4. Lactic acidosis; likely related to overdosing dehydration; patient remains on IV fluids in form of normal saline; we will monitor and trend lactic acid levels 5. Mild renal injury; IV fluids normal saline at rate of 1 30 mL an hour; monitor strict COLLINS's, daily weights, renal function and electrolytes; avoid nep hrotoxins and hypotension 6. Hyperglycemia; no history of diabetes mellitus; we will monitor Accu-Cheks every 6 hours and at bedtime with insulin sliding scale 7. Depression/anxiety; patient takes Klonopin and Effexor at home; we will avoid placing that on hold. The patient is evaluated by psychiatry
== END 2022-12-21 19:45 ==
LOC: EC 11:47 → 5NMEDONC 17:46
PROVIDERS: ADMIT Family Medicine; ATTEND Family Medicine
DX: T43.592A Poisoning by other antipsychotics and neuroleptics, intentional self-harm, initial encounter (principal); F32.9 Major depressive disorder, single episode, unspecified; F41.9 Anxiety disorder, unspecified; E87.6 Hypokalemia; K21.9 Gastro-esophageal reflux disease without esophagitis; E87.20 Acidosis, unspecified; N17.9 Acute kidney failure, unspecified; R73.9 Hyperglycemia, unspecified; Z79.899 Other long term (current) drug therapy; Z20.822 Contact with and (suspected) exposure to COVID-19
CPT/HCPCS: 82075; 96361; 96374; 96375; 99284; 36415; 93005; 80053; 80048; 83605; 83735; 85025 ×2; 80306; 80143; 80320; 87635; 80179; G0378 ×3; J2060; J2405